=== PATIENT | male | born 1950 | race Caucasian/White ===

== ENCOUNTER 2020-01-16 07:16 | Outpatient (CLI) | payer BC, SELFPAY ==
--- NOTE | ~2020-01-16 | CT_ITS ---
EXAMINATION: CT abdomen pelvis w con DATE: 01/16/2020 07:54 INDICATION: Prostate cancer TECHNIQUE: Computed tomography (CT) of the abdomen and pelvis was performed with 100 mL Omnipaque-350 intravenous contrast. Automated exposure control and iterative reconstruction technique were employe d. The dose-length product was 423.79 mGy-cm. COMPARISON: None FINDINGS: Lung bases are clear. Heart size is normal. No pericardial or pleural effusion. Small sliding-type hi atal hernia. Mild focal hepatic steatosis at the ligamentum teres. Gallbladder, spleen, pancreas, lef t kidney and bilateral adrenal glands are normal. 1.7 cm exophytic intermediate attenuation lesion at the lower pole of the right kidney. There are few scattered colonic diverticula without adjacent inf lammatory change to suggest diverticulitis. Small bowel and appendix are normal. Bladder is normal. N o free intraperitoneal gas or fluid. No pathologically enlarged abdominal or pelvic lymphadenopathy. Pathologic fractures at the right superior and inferior pubic rami and left inferior pubic ramus, eac h associated with lytic bone lesions. There is prominent aggressive appearing periosteal reaction wit h hair on and pattern of calcification surrounding the inferior pubic ramus lesion. The left inferior pubic ramus lesion is superimposed over an earlier healed left inferior pubic ramus fracture. IMPRESSION: 1. Pathologic fractures at the right superior and inferior pubic rami and left inferior pubic ramus, each associated with underlying lytic changes which could be related to local osseous metastatic dise ase or radiation necrosis in the appropriate clinical setting. No other evident metastatic disease. 2. Indeterminate 1.7 cm intermediate attenuation right renal lesion most likely proteinaceous/hemorrh agic cyst although solid neoplasm cannot be excluded. Recommend further evaluation with pre and postc ontrast MRI or CT. Line 3. Small sliding-type hiatal hernia. 4. Mild diverticulosis. Reviewed, dictated and finalized at location B. IMPRESSION: 1. Pathologic fractures at the right superior and inferior pubic rami and left inferior pubic ramus, each associated with underlying lytic changes which could be related to local osseous metastatic disease or radiation necrosis in the ap propriate clinical setting. No other evident metastatic disease. 2. Indeterminate 1.7 cm intermediate attenuation right renal lesion most likely proteinaceous/hemorrhagic cyst although solid neoplasm cannot be excluded. Rec ommend further evaluation with pre and postcontrast MRI or CT. Line 3. Small sliding-type hiatal hernia. 4. Mild diverticulosis.
--- NOTE | ~2020-01-16 | NM_ITS ---
EXAMINATION: NM bone scan whole body DATE: 01/16/2020 11:09 INDICATION: Prostate cancer TECHNIQUE: 26.2 mCi Tc-99m HDP was administered intravenously. Delayed whole-body scintigrams were o btained. COMPARISON: CT abdomen and pelvis dated 01/16/2020 FINDINGS: Prominent increased uptake at the right superior pubic ramus and moderate uptake at the lateral infer ior pubic rami with corresponding pathologic fractures with underlying lytic lesions and prominent ag gressive appearing periosteal reaction on CT. Typical pattern of mild likely degenerative joint cente red uptake at the bilateral hands, wrists, elbows and shoulders and in the bilateral feet. No other s uspicious foci of abnormal bone uptake to suggest widespread osseous metastatic disease. IMPRESSION: 1. Prominent increased uptake at the bilateral inferior and right superior pubic rami with correspond ing pathologic fractures with underlying lytic lesions seen on CT. Differential would include metasta tic disease or osteonecrosis related to prior radiation treatment in the appropriate clinical setting . Reviewed, dictated and finalized at location B. IMPRESSION: 1. Prominent increased uptake at the bilateral inferior and right superior pubi c rami with corresponding pathologic fractures with underlying lytic lesions se en on CT. Differential would include metastatic disease or osteonecrosis relate d to prior radiation treatment in the appropriate clinical setting.
[2020-01-16 07:43] LABS: Estimated Glomerular Filt Rate 60
== END 2020-01-16 07:17 | disposition home or self-care (01) ==
PROVIDERS: PCP Family Medicine; Visit Provider Urology
DX: Z19.1 Hormone sensitive malignancy status (principal); K57.30 Diverticulosis of large intestine without perforation or abscess without bleeding; K44.9 Diaphragmatic hernia without obstruction or gangrene
CPT/HCPCS: 74177; 78306; A9561; Q9967

== ENCOUNTER 2020-05-28 10:29 | Outpatient (CLI) | payer BC, SELFPAY ==
--- NOTE | ~2020-05-28 | NM_ITS ---
EXAMINATION: NM bone scan whole body DATE: 05/28/2020 13:36 INDICATION: Pubic ramus fracture. Prostate cancer. TECHNIQUE: 24.3 mCi Tc-99m HDP was administered intravenously. Delayed whole-body scintigrams were o btained. COMPARISON: CT abdomen and pelvis 01/16/20, bones and 01/16/20 FINDINGS: There is increased activity in right superior and inferior pubic rami, right parasymphyseal pubis, and left inferior pubic ramus. There is joint-centered increased activity at the acromioclavi cular joints without radiographic comparison, likely osteoarthritis. IMPRESSION: 1. Unchanged distribution of increased activity in the pubic bones correlating with fractures on the prior CT. Reviewed, dictated and finalized at location A. [employer]
== END 2020-05-28 10:30 | disposition home or self-care (01) ==
PROVIDERS: PCP Family Medicine; Visit Provider Urology
DX: S32.599D Other specified fracture of unspecified pubis, subsequent encounter for fracture with routine healing (principal); X58.XXXD Exposure to other specified factors, subsequent encounter
CPT/HCPCS: 78306; A9561

== ENCOUNTER 2022-04-27 15:47 | Emergency (ER) | payer MEDICARE, BC, SELFPAY ==
[2022-04-27 16:03] VITALS: BP 156/86; PULSE 80; RESP 18; TEMP 37.8; O2SAT 99
--- NOTE | 2022-04-27 16:25 | ED.URI ---
HPI - URI/Sore Throat General Chief Complaint: Upper Respiratory Infection Stated Complaint: sorethroat Time Seen by Provider: 04/27/22 16:25 Source: patient, RN notes reviewed and old records reviewed Mode of arrival: ambulatory Limitations: no limitations History of Present Illness HPI Narrative: 71-year-old male presents to the [facility] with concerns for COVID and flu. symptoms started yesterday. Patient states is positive for COVID, granddaughter is positive for influenza A. Has taking [place] cough drops. No other treatment prior to arrival Related Data Home Medications Medication Instructions Recorded Confirmed atorvastatin 20 mg tablet 20 mg DAILY 04/27/22 04/27/22 enzalutamide 40 mg capsule (Xtandi) 40 mg PO DAILY 04/27/22 04/27/22 omeprazole 40 mg capsule,delayed 40 mg DAILY 04/27/22 04/27/22 release rizatriptan 10 mg tablet 10 mg PRN PRN Headache 04/27/22 04/27/22 Allergies Allergy/AdvReac Type Severity Reaction Status Date / Time No Known Allergies Allergy Verified 04/27/22 16:09 Review of Systems Review of Systems: All systems reviewed & are unremarkable except as noted in HPI and below Constitutional: Constitutional: Reports as per HPI, Reports body ache(s), Reports fatigue and Reports fever(s) Eyes: Eyes: Reports no additional eye complaints ENT: Reports system reviewed and no additional complaints, except as documented Cardiovascular: Cardiovascular: Reports no additional cardiovascular complaints, Denies chest pain and Denies dyspnea Respiratory: Respiratory: Reports no additional respiratory complaints, Denies chest congestion, Denies cough and Denies dyspnea Gastrointestinal: Gastrointestinal: Reports no additional gastrointestinal complaints, Denies abdominal pain, Denies nausea and Denies vomiting Musculoskeletal: Musculoskeletal: Reports no additional musculoskeletal complaints Integumentary/Breasts: Skin/Breast: Reports system reviewed and no additional complaints, except as docu Neurologic: Reports system reviewed and no additional complaints, except as documented Psychiatric: Psychiatric: Reports no additional psychiatric complaints Allergic/Immunologic: Allergic/Immunologic: Reports no additional allergic/immunologic complaints [facility] Past Medical History Medical History (Updated 04/27/22 @ 19:10 by Aurea Blood APRN) H/O gastroesophageal reflux (GERD) High cholesterol Comments At the time of my signature, I reviewed and agree with the nursing past medical, surgical, social, and family history. There is no relevant family history pertinent to the patient complaint. Exam Const: General: cooperative, comfortable, no acute distress, well developed, alert, ill appearing acutely (mild) and well nourished Nutritional Appearance: well nourished Orientation/consciousness: patient oriented x3 Limitations: no limitations HENMT: Head: normal to inspection Ears: hearing grossly normal bilaterally and external ears normal Face/Nose/Sinus: Normal external nose present, Normal nares present, Normal nasal mucous membranes and turbinates present and normal facial exam Face and sinus: normal facial exam Mouth: Yes Normal oral and palatal mucosa present, Yes lip normal and Yes moist mucous membranes Throat: posterior oropharynx normal and uvula midline Eyes: General: appearance normal, both eyes and all related structures Alignment and Position: alignment normal Periorbital: periorbital findings normal Conjunctivae: conjunctivae normal Pupils: Equal, round and reactive pupils present EOM: EOMs intact bilaterally Neck: Neck: normal visual inspection, full ROM, no lymphadenopathy and no meningeal signs Chest: Chest palpation & inspection: normal inspection of the chest Resp: Effort & Inspection: normal respiratory effort and able to speak in complete sentences Auscultation: clear to auscultation bilaterally, no crackles, no rales, no rhonchi and no wheezes Cardio: Rate:
== END 2022-04-27 17:00 | disposition home or self-care (01) ==
PROVIDERS: Emergency Provider Nurse Practitioner; PCP Family Medicine
DX: U07.1 COVID-19 (principal); J10.1 Influenza due to other identified influenza virus with other respiratory manifestations; K21.9 Gastro-esophageal reflux disease without esophagitis; E78.00 Pure hypercholesterolemia, unspecified
CPT/HCPCS: 87426; 87804; 99213; C9803; G0463

== ENCOUNTER 2024-06-28 10:31 | Emergency (ER) | payer MEDICARE, BC, SELFPAY ==
--- NOTE | ~2024-06-28 | XR_ITS ---
EXAMINATION: [id number] DATE: 06/28/2024 11:51 INDICATION: Lateral lower left rib pain post fall TECHNIQUE: A frontal inspiratory view of the chest and 3 views of the left ribs were obtained. COMPARISON: None FINDINGS: Mildly displaced fracture of the anterolateral left eighth and ninth ribs. No pneumothorax. No focal infiltrates, pleural effusion or pulmonary edema. Cardiomediastinal silhouette is normal. IMPRESSION: 1. Mildly displaced fractures of the anterolateral left eighth and ninth ribs. 2. No pneumothorax or other acute cardiopulmonary disease. Reviewed, dictated and finalized at location A. [facility]
--- OUTSIDE RECORDS SUMMARY | 2024-06-28 10:34 | XMS_ITS | Clinical Summary ---
Author Organization [address] Address [address] [place] [phone] Care Team Providers Care Education Rep Name Role Phone Nuha Araujo MD Primary Care Provi norma Allergies No known active allergies Medications cholecalciferol (VITAMIN D-3) 2000 unit tablet Take by mouth Active Xtandi 40 mg capsule 021 Active calcium acetate,phosphat bind, (PHOSLO) 667 mg capsule Take 1 capsule (667 mg total) by mouth 3 times daily Active rizatriptan (MAXALT) 10 mg tabletIndications:Migra ine Take 1 tablet (10 mg total) by mouth once as needed for migraine May repeat in 2 hours if unresolved. Do not exceed 30 mg in 24 hours. 56 tablet 1 024 2024 Active omeprazole (PriLOSEC) 40 mg capsule TAKE 1 CAPSULE(40 MG) BY MOUTH DAILY 100 capsule [address] (CYMBALTA) 20 mg capsuleIndications:Mild episode of recurrent major depressive disorder (HCC) Take 1 capsule (20 mg total) by mouth daily 90 capsule 024 Active atorvastatin (LIPITOR) 40 mg tabletIndications:Pure hypercholesterolemia Take 1 tablet (40 mg total) by mouth daily 90 tablet 025 2025 Active famotidine (PEPCID) 20 mg tabletIndications:Laryn gopharyngeal reflux (LPR) Take 2 tablets (40 mg total) by mouth nightly 30 tablet 2 025 Active fluticasone propionate (FLONASE) 50 mcg/actuation nasal sprayIndications:Eustac hian tube dysfunction, right Administer 2 sprays into each nostril daily 1 each 3 023 2024 Disconti nued(Pat ient Reported ) atorvastatin (LIPITOR) 20 mg tabletIndications:Pure hypercholesterolemia,Dy spnea on exertion Take 1 tablet (20 mg total) by mouth daily 30 tablet 11 024 2024 Disconti nued(Reo rder) Active Problems Problem Noted Date Diagnosed Date Hoarse 06/18/2024 Right corneal abrasion 03/31/2024 Assessment & Plan (03/31/2024 9:26 AM BILL CHECKER): Diagnosed with k abrasion by pcp. Abrasion resolved on exam today with no residual corneal stain. Ok to d/c cipro drops. Start artificial tears prn. F/u here prn. Pt had dfe with his local eye care provider recently. Okay to maintain routine follow up care there. Low bone mass 02/15/2024 Depression, recurrent (CMS/HCC) 02/15/2024 Multiple thyroid nodules 02/07/2023 Bilateral hip pain 01/02/2023 Assessment & Plan (02/07/2023 9:25 AM CDT): Acute, improved Continue supportive care Update me with any changes Assessment & Plan (01/02/2023 2:50 PM CDT): Acute, but again concerning given his prostate cancer metastatic to bone Will check baseline x-ray and pelvis May need further imaging, but hopefully Radiology will guide us Continue supportive care for his pain for now We discussed stronger pain medication like opioid medication, patient declined Further guidance once we have the results Sensorineural hearing loss (SNHL) of both ears 0 08/30/2022 Assessment & Plan (02/07/2023 9:26 AM CDT): Pt denies symptoms Continue to follow with ent Conductive hearing loss, bilateral 08/23/2022 Assessment & Plan (02/07/2023 9:22 AM CDT): Pt denies any symptoms Managed by ENT Bilateral impacted cerumen 08/23/2022 Assessment & Plan (02/07/2023 9:10 AM CDT): Acute, resolved Managed by ENT Update me with any changes or concerns Dyspnea on exertion 01/30/2022 Overview (01/30/2022): check studies encouraged to see card if it returns, call, if they worsens/emergent sx- to the er call for questions Assessment & Plan (02/07/2023 9:23 AM CDT): Acute, now improved We reviewed his work up was incomplete- declined follow up at this time Update me if his symptoms change or return Call for questions Assessment & Plan (01/30/2022 9:43 AM CDT): EKG normal sinus rhythm, incomplete right bundle-branch block, left axis, anterior fascicular block. This is unchanged from July 13, 2020. Encouraged patient to consider Cardiology, patient will consider Malignant neoplasm of prostate metastatic to bon e 07/13/2020 Assessment & Plan (02/07/2023 9:13 AM CDT): Chronic, uncertain level of control given bone pain, but PET scan negative for metastatic lesions where he is having pain currently Managed by Urology Continue current regimen Update me with changes or concerns Assessment & Plan (01/02/2023 2:50 PM CDT): Last urology note reviewed, at that time patient was complaining of bilateral pelvic pain Will check x-rays Continue treatment for his prostate cancer three Urology Update me with any changes or concerns Call for questions Assessment & Plan (02/07/2022 12:06 PM CDT): Will reach out to his urologist regarding medication for cholesterol If in agreement, will start Lipitor 10 mg nightly We will let him know once we hear from his urologist Assessment & Plan (01/30/2022 8:51 AM CDT): Chronic Continue to follow with urology Update me with any changes F/u in 6 months to update me Call for questions Assessment & Plan (07/13/2020 9:50 AM BILL CHECKER): Continue to follow with urology Keep me updated Call for questions or concerns Melanocytic nevi of trunk 02/19/2020 Assessment & Plan (02/07/2023 9:25 AM CDT): Asymptomatic Encouraged follow up with derm Update me with any changes Assessment & Plan (01/30/2022 8:52 AM CDT): Improved Encouraged follow up with derm Update me with any changes Assessment & Plan (07/13/2020 10:24 AM BILL CHECKER): Continue to follow with derm Solar lentiginosis 02/19/2020 Assessment & Plan (02/07/2023 9:27 AM CDT): Asymptomatic Encouraged follow up with derm as needed Assessment & Plan (01/30/2022 8:54 AM CDT): Improved Encouraged follow up with derm Update me with any changes Assessment & Plan (07/13/2020 10:24 AM BILL CHECKER): Continue to follow with derm Hypertension, essential 03/26/2019 Assessment & Plan (02/07/2023 9:11 AM CDT): Chronic, stable On lifestyle changes Continue to monitor Assessment & Plan (01/02/2023 2:53 PM CDT): Chronic, mildly elevated today Patient and discomfort Continue to monitor at home Continue healthy changes Recheck at follow-up Assessment & Plan (01/30/2022 8:49 AM CDT): Elevated- but patient states it is always elevated when he comes in Will give him a handout on the dash diet Will have him update us with his blood pressure readings from home F/u for BP check in 1-2 weeks with his home cuff Assessment & Plan (07/13/2020 10:23 AM BILL CHECKER): Recheck WNL Continue current regimen Assessment & Plan (06/20/2019 7:51 AM BILL CHECKER): Now diet controlled Continue working on healthy changes Call for questions or concerns Assessment & Plan (03/26/2019 10:21 AM BILL CHECKER): With three elevated blood pressures Hand out on DASH diet Will start metoprolol daily for both blood pressure/migraine Reviewed risks/benefits Continue healthy changes Recheck in 1 month for blood pressure check Call for questions or concerns Pure hypercholesterolemia 03/26/2019 Overview (03/26/2019): CVD Score 21.4% Assessment & Plan (02/07/2023 9:26 AM CDT): Chronic, stable Continue Lipitor 20 mg nightly Labs ordered Assessment & Plan (02/07/2022 10:17 AM CDT): Currently uncontrolled CVD score 27.[address] Smith regarding medication options Update me with any concerns Further guidance once we have the results Assessment & Plan (01/30/2022 8:54 AM CDT): Chronic, but with a high risk Will recheck Further guidance once we have the results Assessment & Plan (07/13/2020 10:25 AM BILL CHECKER): Not on medication Labs ordered Assessment & Plan (03/26/2019 10:55 AM BILL CHECKER): Reviewed ASCVD score Reviewed risk of heart attack, stroke Declined medication Will work on healthy changes Recheck in 3-6 months Encounter for Medicare annual wellness exam 05/2018 Overview (02/15/2024): Pt with a living will Health Maintenance: Last PSA: through Urology Last cologuard: 12/2021- Neg Last AAA Screenin03/19/19-WNL Last Tdap:02/03 Last pneumonia: up to date Last Shingrix: encouraged Last Flu: up to date COVID: up to date RSV: up to date Assessment & Plan (02/15/2024 7:49 AM CDT): Pt with a living will Health Maintenance: Last PSA: through Urology Last cologuard: 12/2021- Neg Last AAA Screenin03/19/19-WNL Last Tdap:02/03 Last pneumonia: up to date Last Shingrix: encouraged Last Flu: up to date COVID: up to date RSV: up to date Assessment & Plan (02/07/2023 9:19 AM CDT): Encouraged healthy diet and activity Please look into a power of chancellor or living will Health Maintenance: Last PSA: through Urology Last cologuard: 12/2021- Neg Last AAA Screenin03/19/19-WNL Last Tdap:02/03 Last pneumonia: up to date Last Shingrix: seconfdvaccine pending Last Flu: yearly COVID: reviewed RSV: encouraged Assessment & Plan (01/30/2022 8:45 AM CDT): Encouraged healthy diet and activity Please look into a power of chancellor or living will Health Maintenance: Last PSA: through Urology Last cologuard: 12/2021 Last AAA Screenin03/19/19-WNL Last Tdap:07/24 Last pneumonia/Prevnar: believes he had at [facility] Last Shingrix: reviewed, encouraged Last Flu: yearly COVID: completed Assessment & Plan (07/13/2020 9:53 AM BILL CHECKER): Encouraged healthy diet and activity Please look into a power of chancellor or living will Wear sun screen, seat belts Health Maintenance: Last PSA: Last cologuard: 07/2018- neg, repeat in 3 years Last AAA Screenin03/19/19-WNL Last Tdap:07/24 Last pneumonia/Prevnar: believes he had at [facility] Last Shingrix: consider after covid Last Flu: yearly COVID: started first injection Assessment & Plan (03/14/2019 8:20 AM CDT): Work on healthy low carb diet Healthy activity for 30 minutes daily Wear sun screen, seat belts No texting/drinking and driving PMH updated: Last colonoscopy/cologuard:07/20/18, cologuard negative Last Tdap:07/2012 Last pneumonia/Prevnar: due Last Shingrix: reviewed Last Flu: 2 weeks ago Last Eye Exam: yearly Last hepatitis C: ordered Last PSA: ordered Last AAA screening: ordered Overweight (BMI 25.0-29.9) 03/14/2019 Assessment & Plan (03/28/2024 9:51 AM BILL CHECKER): BMI Follow-up includes: education provided. Assessment & Plan (02/07/2023 9:13 AM CDT): BMI Follow-up includes: nutrition counseling. Assessment & Plan (01/30/2022 8:53 AM CDT): BMI Follow-up includes: nutrition counseling. Assessment & Plan (07/13/2020 10:25 AM BILL CHECKER): BMI Follow-up includes: nutrition counseling. Assessment & Plan (03/14/2019 8:29 AM CDT): BMI Follow-up includes: nutrition counseling and exercise counseling. GERD (gastroesophageal reflux disease) 9 Assessment & Plan (02/07/2023 9:11 AM CDT): Chronic, stable Continue omeprazole Reviewed the risk, benefits, side effects of medication Assessment & Plan (01/30/2022 8:48 AM CDT): Chronic stable Reviewed the risks/benefits of medication We discussed decreasing to 20 mg daily when he needs his last refill Assessment & Plan (07/13/2020 10:23 AM BILL CHECKER): Reviewed risks of PPI's Continue current regimen for now Call for questions or concerns Assessment & Plan (03/14/2019 8:30 AM CDT): Stable Continue current regimen Reviewed the risks/benefits including c diff, pneumonia Call for questions or concerns Migraine with aura and witho ut status migrainosus, not intractable 06/17/2018 Assessment & Plan (02/07/2023 9:13 AM CDT): Chronic, stable Continue Maxalt as needed Continue healthy habits for migraines Assessment & Plan (01/30/2022 8:52 AM CDT): Chronic, improved Continue maxalt as needed Continue healthy changes for headaches- avoiding triggers, working on good sleep, stress reduction Assessment & Plan (07/13/2020 10:24 AM BILL CHECKER): Stable Continue current regimen Call for questions or concerns Assessment & Plan (06/20/2019 7:49 AM BILL CHECKER): Doing well on medication Continue current regimen Update me with any changes Call for questions or concerns Assessment & Plan (03/14/2019 8:29 AM CDT): Continue maxalt if needed Will do a trial of aimovig Work on healthy changes Call for questions or concerns Resolved Problems Problem Noted Date Diagnosed Date Resolved Date Acute bilateral low back solomon n without sciatica 01/02/2023 02/15/2024 Assessment & Plan (02/07/2023 9:22 AM CDT): Acute, improved Continue muscle relaxer as needed Continue supportive care Assessment & Plan (01/02/2023 2:53 PM CDT): Acute, new diagnosis with uncertain prognosis. With his prostate cancer metastatic to bone, this could be a more serious issue than just muscular back pain Will check x-ray. I did let the patient know that depending on those results, it will determine what our next steps are with imaging We discussed that until we know the source for his pain, we can not necessarily have a great plan Will do a trial of Flexeril to help with his pain at night Further guidance once we get the results Update me with any questions or concerns Eustachian tube dysfunction, right 08/30/2022 02/15/2024 Assessment & Plan (02/07/2023 9:11 AM CDT): Acute, resolved Managed by ENT Impacted cerumen of left ear 08/30/2022 02/15/2024 Assessment & Plan (02/07/2023 9:11 AM CDT): Acute, resolved Inflamed seborrheic keratosis 02/19/2020 02/15/2024 Assessment & Plan (02/07/2023 9:24 AM CDT): resolved No skin concerns currently Update me with any changes Assessment & Plan (01/30/2022 8:50 AM CDT): Improved Encouraged follow up with derm Update me with any changes Assessment & Plan (07/13/2020 10:24 AM BILL CHECKER): Continue to follow with derm High prostate specific antigen (PSA) 03/26/2019 01/30/2022 Assessment & Plan (06/20/2019 7:51 AM BILL CHECKER): Referral replaced Update me after the visit Call for questions or concerns Assessment & Plan (03/26/2019 10:11 AM BILL CHECKER): Will refer to urology for further guidance Update me after the visit Call for questions or concerns Encounters Date Type Department Care Team Description 06/18/2024 11:00 AM BILL CHECKER Office Visit [facility] Otol[facility] [address] [place] [phone] Ginger Burnette NP Laryngopharyngeal reflux (LPR) (Primary Dx); Hoarse; Bilateral impacted cerumen; Sensorineural hearing loss (SNHL) of both ears 06/10/2024 7:15 AM BILL CHECKER Office Visit [facility] Family Medicine [address] [place] [phone] Nuha Araujo MD Multiple thyroid nodules (Primary Dx); Subclinical hyperthyroidism; Pure hypercholesterolemia; 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); Hoarse; Cold extremities 06/06/2024 9:15 AM BILL CHECKER - 06/06/2024 11:59 PM BILL CHECKER Hospital Encounter [facility] [address] [place] [address] Neck pain Discharge Disposition: Discharge to home or self care 05/28/2024 9:45 AM BILL CHECKER Lab [facility] [address] [place] [address] Gastroesophageal reflux disease without esophagitis; Hypertension, essential 03/31/2024 9:15 AM BILL CHECKER Office Visit [facility] [address] [place] [address] [place] [phone] Anson Bright OD Abrasion of right cornea, initial encounter 03/28/2024 9:00 AM BILL CHECKER Office Visit [facility] Family Medicine [address] [phone] Shannan Arriaza PA Abrasion of right cornea, initial encounter (Primary Dx); Overweight (BMI 25.0-29.9) from Last 3 Months Immunizations Name Administration Dates Next Due DTaP 05/25/2006 Influenza, Quad, Adjuvantate d, Intramuscular 03/01/2023,04/12/2021 Influenza, Quadrivalent, Hig h Dose, Preservative Free, Intrr 01/30/2022,03/05/2020 Influenza, Trivalent, Adjuva nted, Intramuscular 02/01/2024,03/05/2018,03/04/2018,02/22 Influenza, Trivalent, High D ose, Split, Preservative Free, Intramuscular 02/28/2019,03/31/2016,01/28/2014 Influenza, Trivalent, IM (MDV) 02/21/2013,2009 Influenza, Trivalent, Preser vative Free, Intramuscular 02/17/2015 Influenza, Unspecified 02/07/2023(Deferr ed: Patient Refused),03/05/2020 Moderna SARS-CoV-2 Monovalen t Vaccination (12+ YRS) 06/23/2020 Pneumococcal Conjugate Pcv20 01/30/2022 RSV, Bivalent, Protein Subun it Rsvpref, Diluent (Abrysvo) 03/01/2023 Tdap 02/07/2023,07/12/2012 ZOSTER Recombinant 02/06/2024,02/07/2023 Surgical History Surgery Date Site/Laterality Comments SINUS SURGERY 05/14/1999 - 05/13/2000 SINUS SURGERY 08/12/2018 - 09/10/2018 BACK SURGERY 05/14/1994 - 05/13/1995 LASIK FINE NEEDLE ASPIRATION 05/14/2022 - 05/13/2023 N/A thyroid-benign EYE SURGERY Medical History Medical History Date Comments Migraine MRI done 01/07/14 -Normal GERD (gastroesophageal reflux disease) Esophageal stricture Biceps tendinitis Hypertension Cancer (CMS/HCC) (HCC) Tinnitus Ear problems HL (hearing loss) Acute bilateral low back pain without sciatica 0 01/02/2023 Eustachian tube dysfunction, right 08/30/2022 Inflamed seborrheic keratosis 02/19/2020 Hoarseness Family History Medical History Relation Name Comments Cancer Father Prostate cancer Maternal Grandfather No Known Problems Mother Glaucoma Paternal Grandmother Macular degeneration Neg Hx Relation Name Status Comments Father Maternal Grandfather Maternal Grandmother Mother Alive Paternal Grandfather Paternal Grandmother Social History Tobacco Use Types Packs/Day Years Used Date Smoking Tobacco: Never Smokeless Tobacco: Never Tobacco Cessation:Counseling Given: Not Answered Alcohol Use Standard Drinks/Week Comments Never 0 (1 standard drink = 0.6 oz pur e alcohol) AUDIT-C Answer Date Recorded Q1: How often do you have a drink containing alcohol? Never 06/10/2024 Q2: How many drinks containi ng alcohol do you have on a typical day when you are drinking? Patient does not drink Q3: How often do you have si x or more drinks on one occasion? Never 06/10/2024 PHQ-2 Answer Date Recorded PHQ-2 Total Score (If total score is 3 or more points, staff should administer the PHQ-9) 0 06/10/2024 Sex and Gender Information Value Date Recorded Sex Assigned at Not on file Legal Sex Male 9:34 PM BILL CHECKER Gender Identity Not on file Sexual Orientation Not on file Occupation Industry Job Start Date Job End Date retired Not on file Not on file Not on file Obstetrics History Last Filed Vital Signs Vital Sign Reading Time Taken Comments Blood Pressure 128/70 06/10/2024 7:27 AM BILL CHECKER Pulse 78 06/10/2024 7:27 AM BILL CHECKER Temperature 36.4 C (97.5 F) 06/10/2024 7:27 AM BILL CHECKER Respiratory Rate 18 06/18/2024 11:07 AM BILL CHECKER Oxygen Saturation 98% 06/10/2024 7:27 AM BILL CHECKER Inhaled Oxygen Concentration - - Weight 81.6 kg (180 lb) 06/18/2024 11:07 AM BILL CHECKER Height 180.3 cm (5' 11 ) 06/18/2024 11:07 AM BILL CHECKER Body Mass Index 25.1 06/18/2024 11:07 AM BILL CHECKER Plan of Treatment Health Maintenance Due Date Last Done Comments Hepatitis B Screening 1968 Covid-19 Vaccine (2023-2 5 season) 2024 01/18/2024, 03/01/2023, 12/01/2021, Additional history exists Colon Cancer Screening-DNA Stool 01/05/2025 01/06/20, 07/20/2018 Fall Risk Assessment 02/14/2025 02/15/2024, 02/07/2023, 01/30/2022, Additional history exists Well Visit 65+ 02/14/2025 02/15/2024, 01/13, 02/07/2023, Additional history exists Depression Screening 06/10/2025 06/10/2024, 03/28/2024, 02/15/2024, Additional history exists DTaP/Tdap/Td Vaccine (4 - Td or Tdap) 02/07/2033 02/07/2023, 07/12/2012, 05/25/2006 Hepatitis C Screening Completed 03/14/2019 Prostate Cancer Screening-PSA Discontinued , 03/14/2019, 02/19/2017, Additional history exists Pneumococcal vaccine 65+ Completed 01/30/2022 Influenza Vaccine Completed 02/01/2024, , 01/30/2022, Additional history exists Zoster Vaccine Completed 02/06/2024, 02/07/2023 Procedures Procedure Name Priority Date/Time Associated Diagnosis Comments XR SPINE CERVICAL 2 OR 3 VIEWS Schedule Routine, Read Routine (OP Routine) 06/06/2024 9:23 AM BILL CHECKER Neck pain T3, FREE Routine 05/28/2024 9:50 AM BILL CHECKER EGFR Routine 05/28/2024 9:50 AM BILL CHECKER Hypertension, essential T4, FREE Routine 05/28/2024 9:50 AM BILL CHECKER Hypertension, essential DIFFERENTIAL AUTO Routine 05/28/2024 9:5 0 AM BILL CHECKER Hypertension, essential VITAMIN B12 Routine 05/28/2024 9:50 AM BILL CHECKER Gastroesophageal reflux disease without esophagitis THYROID FUNCTION CASCADE Routine 05/28/2024 9:50 AM BILL CHECKER Hypertension, essential LIPID PANEL Routine 05/28/2024 9:50 AM BILL CHECKER Hypertension, essential CBC WITH AUTO DIFFERENTIAL Routine 05/28/2024 9:50 AM BILL CHECKER Hypertension, essential COMPREHENSIVE METABOLIC PANEL Routine 05/28/2024 9:50 AM BILL CHECKER Hypertension, essential MAGNESIUM Routine 05/28/2024 9:50 AM BILL CHECKER Gastroesophageal reflux disease without esophagitis STOOL DNA COLOGUARD Routine 01/05/2022 11:10 AM CDT Screen for colon cancer PSA, TOTAL AND FREE Routine 08/19/2020 6 :32 AM CDT Malignant neoplasm of prostate metastatic to bone (CMS/HCC) HEPATITIS C ANTIBODY Routine 03/14/2019 9:16 AM CDT from Last 3 Months or Most Recently Relevant to Health Maintenance Results * XR Spine Cervical 2 or 3 Views (06/06/2024 9:23 AM BILL CHECKER) Anatomical Region Laterality Modality Spine N/A Computed Radiogr aphy 06/06/2024 7:11 PM BILL CHECKER Narrative 06/06/2024 7:13 PM BILL CHECKER EXAM DESCRIPTION: XR SPINE CERVICAL 2 OR 3 VIEWS REASON FOR STUDY: neck pain Chronic headaches FINDINGS: Two views submitted without comparison. No acute fracture. No prevertebral soft tissue swelling. There is mild retrolisthesis of C3 on C4. There is mild C3-C6 and severe C6-C7 degenerative disc disease. Bilateral cervical facet osteoarthritis is present. There is mild levocurvature of the cervicothoracic junction. IMPRESSION: Mild C3-C6 and severe C6-C7 degenerative disc disease with bilateral cervical facet osteoarthritis. THIS IS AN ELECTRONICALLY VERIFIED FINAL REPORT 06/06/2024 7:13 PM - Electronically signed by Eric Lombardo M.D. MF: LILY Report ID: [id number] Reading Location: [id number] Procedure Note Eric Lombardo MD - 06/06/2024 EXAM DESCRIPTION: XR SPINE CERVICAL 2 OR 3 VIEWS REASON FOR STUDY: neck pain Chronic headaches FINDINGS: Two views submitted without comparison. No acute fracture. No prevertebral soft tissue swelling. There is mild retrolisthesis of C3 on C4. There is mild C3-C6 and severe C6-[id number] disc disease. Bilateral cervical facet osteoarthritis is present. Thereis mild levocurvature of the cervicothoracic junction. IMPRESSION: Mild C3-C6 and severe C6-C7 degenerative disc disease with bilateralcervical facet osteoarthritis. THIS IS AN ELECTRONICALLY VERIFIED FINAL REPORT 06/06/2024 7:13 PM - Electronically signed by Eric Lombardo M.D. MF: LILY Report ID: [id number] Reading Location: [place] [address] us Physician No IMG XR PROCEDURES Final Result * eGFR (05/28/2024 9:50 AM BILL CHECKER) eGFR 78 >=60 mL/min/1. 73 m2 Comment: Interpretive Data Reference Interval Normal >/= 90 mL/min/1.73m2 Mildly decreased* 60 - 89 mL/min/1.73m2 Mildly to moderately decreased 45 - 59 mL/min/1.73m2 Moderately to severely decreased 30 - 44 mL/min/1.73m2 Severely decreased 15 - 29 mL/min/1.73m2 Kidney Failure < 15 mL/min/1.73m2 *Relative to young adult level Estimated glomerular filtration rate is determined by the 2020 CKD-EPI equation recommended by the National Kid[employer] (A Unifying Approach to GFR Estimation: Recommendations of the NKF-ASK Task Force on Reassessing the Inclusion of Race in Diagnosing Kidney Disease, JASN 2020). The CKD-EPI equation should not be used for patients with unstable renal function and has not been validated in children and those over 70. Current interpretive data was last reviewed 2021. Testing performed by: [address] [address] Blood 05/28/2024 9:50 AM BILL CHECKER 05/28/2024 12:00 PM BILL CHECKER us Nuha Araujo MD LAB BLOOD ORDERABLE S Final Result [facility] [address] [facility] Department [place] [address] * Differential, auto (05/28/2024 9:50 AM BILL CHECKER) Neutrophil abs 2.0 1.5 - 6.5 K/cumm Comment:Testing performed by : [address] [address] Imm gran abs 0.0 0.0 - 0.1 K/cumm EDWIN Comment:Testing performed by : [address] [address] Lymphocyte abs 0.8 0.8 - 3.3 K/cumm EDWIN Comment:Testing performed by : [address] [address] Monocyte abs 0.5 0.2 - 0.8 K/cumm EDWIN Comment:Testing performed by : [address] [address] Eosinophil abs 0.2 0.0 - 0.5 K/cumm [facility] Comment:Testing performed by : [address] [address] Basophil abs 0.0 0.0 - 0.1 K/cumm [facility] Comment:Testing performed by : [address] [address] Neutrophil pct 56.8 % [facility] Comment: Interpretive Data Percent cell count reference ranges are not reported, since discordance with absolute values may lead to misinterpretation of CBC data. Current Interpretive Data was last revised on 2017. Testing performed by: [address] [address] Imm gran pct 0.6 % [facility] Comment: Interpretive Data Percent cell count reference ranges are not reported, since discordance with absolute values may lead to misinterpretation of CBC data. Current Interpretive Data was last revised on 2017. Testing performed by: [address] [address] Lymphocyte pct 22.4 % [facility] Comment: Interpretive Data Percent cell count reference ranges are not reported, since discordance with absolute values may lead to misinterpretation of CBC data. Current Interpretive Data was last revised on 2017. Testing performed by: [address] [address] Monocyte pct 14.6 % [facility] Comment: Interpretive Data Percent cell count reference ranges are not reported, since discordance with absolute values may lead to misinterpretation of CBC data. Current Interpretive Data was last revised on 2017. Testing performed by: [address] [address] Eosinophil pct 4.7 % [facility] Comment: Interpretive Data Percent cell count reference ranges are not reported, since discordance with absolute values may lead to misinterpretation of CBC data. Current Interpretive Data was last revised on 2017. Testing performed by: [address] [address] Basophil pct 0.9 % [facility] Comment: Interpretive Data Percent cell count reference ranges are not reported, since discordance with absolute values may lead to misinterpretation of CBC data. Current Interpretive Data was last revised on 2017. Testing performed by: [address] [address] Blood 05/28/2024 9:50 AM BILL CHECKER 05/28/2024 12:02 PM BILL CHECKER Nuha Araujo MD LAB BLOOD ORDERABLE S Final Result Performing Organization Address [facility] de Phone Number EDWIN [address] [place] [place] [address] * (ABNORMAL) Thyroid Function [place] (05/28/2024 9:50 AM BILL CHECKER) TSH 0.19(L) 0.30 - 4.20 mcIUnit/mL Comment:Testing performed by : [address] [address] Blood 05/28/2024 9:50 AM BILL CHECKER 05/28/2024 12:00 PM BILL CHECKER Nuha Araujo MD LAB BLOOD ORDERABLE S Final Result Performing Organization Address [facility] de Phone Number NATAN[address] [place] [employer] [place] [address] * (ABNORMAL) CBC with auto differential (05/28/2024 9:50 AM BILL CHECKER) WBC 3.4(L) 3.8 - 9.9 K/cumm Comment:Testing performed by : [address] [address] Hgb 15.4 13.0 - 17.5 g/dL EDWIN RANDALL Comment:Testing performed by : [address] [address] Hct 45.6 38.9 - 50.3 % EDWIN [place] Comment:Testing performed by : [address] [address] Plt 180 150 - 400 K/cumm EDWIN [place]ANDALL Comment:Testing performed by : [address] [place]., [address] MPV 11.4 9.1 - 12.3 fL EDWIN [place]ALL Comment:Testing performed by : [address] [address] RBC 5.33 4.30 - 5.80 M/cumm EDWIN [place]ALL Comment:Testing performed by : [address] [address] MCV 85.6 81.3 - 96.4 fL EDWIN Comment:Testing performed by : [address] [address] MCH 28.9 27.1 - 33.3 pg EDWIN [place]ANDALL Comment:Testing performed by : [address] [address] MCHC 33.8 32.3 - 35.7 g/dL EDWIN [place]ANDALL Comment:Testing performed by : [address], [address] RDW CV 13.2 11.1 - 14.9 % EDWIN Comment:Testing performed by : [address], [address] RDW SD 40.8 35.7 - 48.1 fL EDWIN Comment:Testing performed by : [address] [address] NRBC abs 0.00 0.00 - 0.01 K/cumm EDWIN RANDALL Comment:Testing performed by : [address], [address] Blood 05/28/2024 9:50 AM BILL CHECKER 05/28/2024 12:02 PM BILL CHECKER us Nuha Araujo MD LAB BLOOD ORDERABLE S Final Result EDWIN [address] [facility] Department of Laboratories [place], [place] [id number] * T3, free (05/28/2024 9:50 AM BILL CHECKER) Free T3 4.4 2.0 - 4.4 pg/mL Blood 05/28/2024 9:50 AM BILL CHECKER 05/28/2024 4:35 PM BILL CHECKER Narrative EDWIN - 05/28/2024 5:10 PM BILL CHECKER This test was reflexed from a T4 result. us Nuha Araujo MD LAB BLOOD ORDERABLE S Final Result Performing Organization Address City/[facility]/ZIP Co de Phone Number EDWIN [address] [address] * T4, free (05/28/2024 9:50 AM BILL CHECKER) Free T4 1.12 0.90 - 1.70 ng/dL Comment:Testing performed by : [address] [address] Blood 05/28/2024 9:50 AM BILL CHECKER 05/28/2024 12:00 PM BILL CHECKER Narrative EDWIN - 05/28/2024 2:22 PM BILL CHECKER This test was reflexed from a TSH result. us Nuha Araujo MD LAB BLOOD ORDERABLE S Edited Result - Final Performing Organization Address [facility] de Phone Number NATAN[address] [address] * Magnesium (05/28/2024 9:50 AM BILL CHECKER) Magnesium 2.3 1.4 - 2.5 mg/dL Comment:Testing performed by : [address] [address] Blood 05/28/2024 9:50 AM BILL CHECKER 05/28/2024 12:00 PM BILL CHECKER us Nuha Araujo MD LAB BLOOD ORDERABLE S Final Result Performing Organization Address [facility]/ZIP Co de Phone Number EDWIN [address] [address] * Vitamin B12 (05/28/2024 9:50 AM BILL CHECKER) Vitamin B12 269 230 - 1,250 pg/mL Comment:Testing performed by : [facility], [address] [place] [address]., [address] Blood 05/28/2024 9:50 AM BILL CHECKER 05/28/2024 12:00 PM BILL CHECKER us Nuha Araujo MD LAB BLOOD ORDERABLE S Final Result EDWIN [address] [facility] Department [place] [address] * (ABNORMAL) Lipid panel (05/28/2024 9:50 AM BILL CHECKER) Cholesterol 232(H) 30 - 199 mg/dL Comment: Interpretive Data Ages < or = 19 years Acceptable: <170 mg/dL Borderline high: 170-199 mg/dL High: >or= 200 mg/dL Ages > or = 20 years Desirable: <200 mg/dL Borderline high: 200-239 mg/dL High: >or= 240 mg/dL Literature References: 1. Expert Panel on Integrated Guidelines for Cardiovascular Health and Risk Reduction in Children and Adolescents. Pediatrics 2011;128:S213 2. NCEP Expert Panel. Circulation 2004;110:227 Current Interpretive Data was last revised on 2018. Testing performed by: [facility], [address] [place] [address]., [address] Triglycerides 95 <=149 mg/dL EDWIN Comment: Interpretive Data Ages < or = 9 years Acceptable: <75 mg/dL Borderline high: 75-99 mg/dL High: >or= 100 mg/dL Ages 10 to 20 years Acceptable: <90 mg/dL Borderline high: 90-129 mg/dL High: >or= 130 mg/dL Ages > or = 20 years Desirable: <150 mg/dL Borderline high: 150-199 mg/dL High: 200-499 mg/dL Very high: >or= 499 mg/dL Literature References: 1. Expert Panel on Integrated Guidelines for Cardiovascular Health and Risk Reduction in Children and Adolescents. Pediatrics 2011;128:S213 2. NCEP Expert Panel. Circulation 2004;110:227 Current Interpretive Data was last revised on 2018. Testing performed by: [facility], [address] [place] [address]., [address] HDL 84 >=40 mg/dL EDWIN Comment: Interpretive Data Ages < or = 19 years Acceptable: >45 mg/dL Borderline low: 40-45 mg/dL Low: <40 mg/dL Ages > or = 20 years Desirable: >or= 60 mg/dL Low: <40 mg/dL Literature References: 1. Expert Panel on Integrated Guidelines for Cardiovascular Health and Risk Reduction in Children and Adolescents. Pediatrics 2011;128:S213 2. NCEP Expert Panel. Circulation 2004;110:227 Current Interpretive Data was last revised on 2018. Testing performed by: [address] [address] LDL, calculated 132(H) <=129 mg/dL EDWIN Comment: Interpretive Data Ages < or = 19 years Acceptable: <110 mg/dL Borderline high: 110-129 mg/dL High: >or= 130 mg/dL Ages > or = 20 years Optimal: <100 mg/dL Near optimal: 100-129 mg/dL Borderline high: 130-159 mg/dL High: >160 mg/dL Calculated using the Bandar LDL-C estimating equation. This equation was implemented on 2024. Prior to this date LDL-C was estimated using the Friedewald equation. Literature References: 1. Expert Panel on Integrated Guidelines for Cardiovascular Health and Risk Reduction in Children and Adolescents. Pediatrics 2011;128:S213 2. NCEP Expert Panel. Circulation 2004;110:227 3. Bandar Graham al. CLARA Cardiol. 2019September 11;5(5):540-548. doi: [email or web address] Current Interpretive Data was last revised on 2024. Testing performed by: [facility], [address] [place] [address]., [address] Non-HDL Cholesterol 148 mg/dL EDWIN RANDALL Comment: Interpretive Data Ages < or = 19 years Acceptable: <120 mg/dL Borderline high: 120-144 mg/dL High: >145 mg/dL Ages > or = 20 years When triglycerides are >200 mg/dL, Non-HDL cholesterol is a secondary target of therapy with treatment goals that are 30 mg/dL greater than the LDL cholesterol target. Literature References: 1. Expert Panel on Integrated Guidelines for Cardiovascular Health and Risk Reduction in Children and Adolescents. Pediatrics 2011;128:S213 2. NCEP Expert Panel. Circulation 2004;110:227 Current Interpretive Data was last revised on 2018. Testing performed by: [address] [address] Chol/HDL ratio 3 EDWIN Comment:Testing performed by : [address] [address] Blood 05/28/2024 9:50 AM BILL CHECKER 05/28/2024 12:00 PM BILL CHECKER us Nuha Araujo MD LAB BLOOD ORDERABLE S Final Result EDWIN [address] [facility] Department [place] [address] * (ABNORMAL) Comprehensive metabolic panel (05/28/2024 9:50 AM BILL CHECKER) Sodium 140 135 - 145 mmol/L Comment:Testing performed by : [address] [address] Potassium, pl 4.8 3.3 - 4.9 mmol/L EDWIN Comment:Testing performed by : [address] [address] Chloride 102 97 - 110 mmol/L EDWIN Comment:Testing performed by : [address] [address] CO2 28 22 - 32 mmol/L EDWIN Comment:Testing performed by : [address] [address] Anion gap 10 2 - 15 mmol/L EDWIN Comment:Testing performed by : [address] [address] BUN 16 6 - 25 mg/dL EDWIN Comment:Testing performed by : [address] [address] Creatinine 1.02 0.80 - 1.30 mg/dL EDWIN Comment:Testing performed by : [address] [address] Glucose 112 70 - 199 mg/dL EDWIN Comment: Interpretive Data Fasting glucose >/= 126 mg/dl is diagnostic for diabetes. Fasting is defined as no caloric intake for at least 8 hours. Fasting glucose between 100 mg/dl to 125 mg/dl is diagnostic of prediabetes. In a patient with classic symptoms of hyperglycemia or hyperglycemic crisis, a random glucose >/= 200 mg/dl is diagnostic for diabetes. In the absence of unequivocal hyperglycemia, results should be confirmed by repeat testing. The classification and Diagnosis of Diabetes Diabetes Care 2021; 46: S19-S40. Current interpretive data was last revised 2022. Testing performed by: [address] [address] Calcium 10.2 8.5 - 10.3 mg/dL EDWIN Comment:Testing performed by : [address] [address] Bilirubin, total 0.5 0.1 - 1.2 mg/dL EDWIN Comment:Testing performed by : [address] [address] Protein, pl 7.4 6.5 - 8.5 g/dL EDWIN Comment:Testing performed by : [address] [address] Albumin 4.6 3.5 - 5.0 g/dL EDWIN Comment:Testing performed by : [address] [address] Alk phos 70 40 - 130 Units/L EDWIN Comment:Testing performed by : [address] [address] ALT <5(L) 7 - 55 Units/L EDWIN Comment:Testing performed by : [address] [address] AST 20 10 - 50 Units/L EDWIN Comment:Testing performed by : [address] [address] Blood 05/28/2024 9:50 AM BILL CHECKER 05/28/2024 12:00 PM BILL CHECKER us Nuha Araujo MD LAB BLOOD ORDERABLE S Final Result EDWIN [address] [facility] Department [place] [address] * Stool DNA - Cologuard (01/05/2022 11:10 AM CDT) Stool DNA - Cologuard Negative Negative [email or web address] (CLIA #:[id number]) Comment: NEGATIVE TEST RESULT. A negative Cologuard result indicates a low likelihood that a colorectal cancer (CRC) or advanced adenoma (adenomatous polyps with more advanced pre-malignant features) is present. The chance that a person with a negative Cologuard test has a colorectal cancer is less than 1 in 1500 (negative predictive value >99.9%) or has an advanced adenoma is less than 5.3% (negative predictive value 94.7%). These data are based on a prospective cross-sectional study of 10,000 individuals at average risk for colorectal cancer who were screened with both Cologuard and colonoscopy. (Sherly Aguilar al, N Engl J Med 2014;370(14):0873-8768) The normal value (reference range) for this assay is negative. COLOGUARD RE-SCREENING RECOMMENDATION: Periodic colorectal cancer screening is an important part of preventive healthcare for asymptomatic individuals at average risk for colorectal cancer. Following a negative Cologuard result, the [place] Cancer Society and U.S. Multi-Society Task Force screening guidelines recommend a Cologuard re-screening interval of 3 years. References: [place] Cancer Society Guideline for Colorectal Cancer Screening: https://www.cancer.org/cancer/mtdck-fgbnxn-uxtufx/asxgrsfnf-otrpkhiqq-rddhxhc/ac s-rec ommendations.html.; Theo DK, Judie CR, Hoa GreenfieldK, Colorectal Cancer Screening: Recommendations for Physicians and Patients from the U.S. Multi-Society Task Force on Colorectal Cancer Screening , Am J Gastroenterology 2017; 112:5949-3511. TEST DESCRIPTION: Composite algorithmic analysis of stool DNA-biomarkers with hemoglobin immunoassay. Quantitative values of individual biomarkers are not reportable and are not associated with individual biomarker result reference ranges. Cologuard is intended for colorectal cancer screening of adults of either sex, 45 years or older, who are at average-risk for colorectal cancer (CRC). Cologuard has been approved for use by the U.S. FDA. The performance of Cologuard was established in a cross sectional study of average-risk adults aged 50-84. Cologuard performance in patients ages 45 to 49 years was estimated by sub-group analysis of near-age groups. Colonoscopies performed for a positive result may find as the most clinically significant lesion: colorectal cancer [4.0%], advanced adenoma (including sessile serrated polyps greater than or equal to 1cm diameter) [20%] or non- advanced adenoma [31%]; or no colorectal neoplasia [45%]. These estimates are derived from a prospective cross-sectional screening study of 10,000 individuals at average risk for colorectal cancer who were screened with both Cologuard and colonoscopy. (Sherly Aguilar al, N Engl J Med 2014;370(14):3973-1271.) Cologuard may produce a false negative or false positive result (no colorectal cancer or precancerous polyp present at colonoscopy follow up). A negative Cologuard test result does not guarantee the absence of CRC or advanced adenoma (pre-cancer). The current Cologuard screening interval is every 3 years. ([place] Cancer Society and U.S. Multi-Society Task Force). Cologuard performance data in a 10,000 patient pivotal study using colonoscopy as the reference method can be accessed at the following location: www.[employer]/results. Additional description of the Cologuard test process, warnings and precautions can be found at www.[email or web address].[email or web address]. Stool 01/05/2022 11:1 0 AM CDT 01/06/2022 4:33 PM CDT us Nuha Araujo MD LAB BODY FLUIDS AND STOOLS ORDERABLES Final Result [facility] (CLIA #:[id number]) [place] [address] [place] [address] * PSA, total and free (08/19/2020 6:32 AM CDT) Free PSA Screen <0.1 ng/mL [employer] PROSTATE SPECIFIC AG, TOTAL 0.2 0.0 - 4.0 ng/mL [facility] Comment: INTERPRETIVE INFORMATION: Prostate Specific Antigen The Kathy PSA electrochemiluminescent immunoassay was used. Results obtained with different test methods or kits cannot be used interchangeably. The Kathy PSA method is approved for use as an aid in the detection of prostate cancer when used in conjunction with a digital rectal exam in men age 50 and older. The Kathy PSA method is also indicated for the serial measurement of PSA to aid in the prognosis and management of prostate cancer patients. Elevated PSA concentrations can only suggest the presence of prostate cancer until biopsy is performed. PSA concentrations can also be elevated in benign prostatic hyperplasia or inflammatory conditions of the prostate. PSA is generally not elevated in healthy men or men with non-prostatic carcinoma. PROSTATE SPECIFIC AG, % FREE <50 % [facility] Comment: INTERPRETIVE INFORMATION: Prostate Specific Antigen, Free Percentage [facility] uses the Kathy Free PSA electrochemiluminescent immunoassay method in conjunction with the Kathy PSA electrochemiluminescent immunoassay method to determine the free PSA percentage. Values obtained with different assay methods should not be used interchangeably. The free PSA percentage is an aid in distinguishing prostate cancer from benign prostatic conditions in men age 50 and older with a total PSA between 3 and 10 ng/mL and negative digital rectal examination findings. Prostatic biopsy is required for the diagnosis of cancer. In patients with total PSA concentrations of 4-10 ng/mL, the probability of finding prostate cancer on needle biopsy by age in years is: %fPSA 50-59 60-69 70 or older 0 - 10% 49% 58% 65% 11 - 18% 27% 34% 41% 19 - 25% 18% 24% 30% Greater than 25% 9% 12% 16% Other factors may help determine the actual risk of prostate cancer in individual patients. Performed By: [email or web address] [address] [place] [id number] Marketing Systems Analyst: Eri Perez MD Blood specimen (specimen) 08/19/2020 6:32 AM CDT 08/19/2020 6:42 AM CDT Narrative Resulting Agency Comment CLI us Nuha Araujo MD LAB BLOOD ORDERABLE S Final Result [facility] [address] [place] [address], [place] [phone] * Hepatitis C antibody (03/14/2019 9:16 AM CDT) Hep C Ab NONREACT NONREACTIVE [facility] Comment: Siemens CentaurXP using SANAM (chemiluminescent immunoassay) technology. NONREACTIVE: Antibodies to Hepatitis C not detected. This does not exclude early acute Hepatitis C infection, possibility of exposure to Hepatitis C, antibodies below detection limit, or to lack of antibody reactivity to the antigen used in this assay. EQUIVOCAL: Antibodies to Hepatitis C may or may not be present. Sample to be confirmed by real-time PCR method. REACTIVE: Antibodies to Hepatitis C detected.Sample to be confirmed by real-time PCR method. 03/14/2019 9:16 AM CDT 03/14/2019 9:16 AM CDT Narrative Resulting Agency Comment CLI Nuha Araujo MD LAB MICROBIOLOGY - GENERAL ORDERABLES Final Result Performing Organization Address City/[facility]/ZIP Co de Phone Number [facility] [address] [place] [address], [place] [phone] from Last 3 Months or Most Recently Relevant to Health Maintenance Insurance MEDICARE [facility] MEDICARE [facility] MEDICARE [facility] Address: [address] [place] [address] Care Teams Education Rep Relationship Specialty Start Date End Date Nuha Araujo MD [address] [place] [address] PCP - General Family Medicine 09/11/18
--- OUTSIDE RECORDS SUMMARY | 2024-06-28 10:34 | XMS_ITS | Clinical Summary ---
Author Organization [facility] Address [address] [place] [address] Care Team Providers Care Job Forwarder Name Role Phone Nuha Araujo MD Primary Care Provider Allergies No known active allergies Medications meloxicam 15 MG tablet Take 15 mg by mouth daily. 12/01/2019 Active omeprazole 40 MG capsule TK ONE C PO QD 02/24/2019 Active calcium acetate, phos binder, 667 MG Cap Take 667 mg by mouth 3 (three) times daily with meals. Active Cholecalciferol (VITAMIN D3) 50 MCG (1999) Tab Active Active Problems No known active problems Immunizations Name Administration Dates Next Due MODERNA COVID-19 (12+) MRNA, LNP-S, PF, 100 MCG/ 0.5 ML DOSE 07/21/2020,06/23/2020 Social History Tobacco Use Types Packs/Day Years Used Date Smoking Tobacco: Never Smokeless Tobacco: Never Alcohol Use Standard Drinks/Week Comments Never 0 (1 standard drink = 0.6 oz pur e alcohol) AUDIT-C Answer Date Recorded Q1: How often do you have a drink containing alc ohol? Never 02/04/2020 Average Number of Drinks Not on file 020 Frequency of Binge Drinking Not on file 01/13 Sex and Gender Information Value Date Recorded Sex Assigned at Not on file Legal Sex Male 9:34 AM CDT Gender Identity Not on file Sexual Orientation Not on file Last Filed Vital Signs Vital Sign Reading Time Taken Comments Blood Pressure 150/87 02/04/2020 8:05 AM CDT Pulse 85 02/04/2020 8:05 AM CDT Temperature 36.2 C (97.1 F) 02/04/2020 8:05 AM CDT Respiratory Rate - - Oxygen Saturation 99% 02/04/2020 8:05 AM CDT Inhaled Oxygen Concentration - - Weight 80.9 kg (178 lb 6.4 oz) 02/04/2020 8:05 A M CDT Height 180.3 cm (5' 11 ) 02/04/2020 8:05 AM CDT Body Mass Index 24.88 02/04/2020 8:05 AM CDT Plan of Treatment Health Maintenance Due Date Last Done Comments Colorectal Cancer Screening Colonoscopy (10 Years) 1950 Hepatitis C 1968 Annual Medicare Wellness Visit 09/15/2015 Zoster Vaccines (2 of 2) 04/04/2023 02/07/2023 COVID-19 Vaccine (3 - season) 2024 07/21/2020, 06/23/2020 Influenza Adult (#1) 2024 03/05/2020, 02/28/2019, 03/05/2018, Additional history exists DTaP, Tdap and Td Vaccines (4 - Td or Tdap) 02/07/2033 02/07/2023, 07/12/2012, 05/25/2006 Pneumococcal Vaccine: 65+ Years Completed 01/30/2022 RSV Immunization or 60+ Years Completed 03/01/2023 Meningococcal B Vaccine Aged Out No l onger eligible based on patient's age to complete this topic Meningococcal Vaccine Aged Out No ney sudarshan eligible based on patient's age to complete this topic RSV Immunizations Under 20 Months Aged Out No longer eligible based on patient's age to complete this topic Insurance MEDICARE Care Teams Job Forwarder Relationship Specialty Start Date End Date Nuha Araujo MD [address] [facility] [address] [place] [address] PCP - General FAMILY PRACTICE 02/04/20
--- OUTSIDE RECORDS SUMMARY | 2024-06-28 10:34 | XMS_ITS | Patient Health Summary ---
Author Organization [facility] Address [address] [place] [address] Care Team Providers Care [facility] Associate Professor Name Role Phone Nuha Araujo MD Primary Care Provider [phone] Note from [facility],non-owned Affiliates and Associated Physician Practices is amultiple site organization consisting of ambulatory clinics and hospital sitesin [place], [place], [place] and [place]. This disclosure is being madepursuant to the Care Everywhere program and may not contain all information available regarding this patient. Last updated 18.[facility] Allergies No known active allergies Medications * Be aware that medications may not be up to date on this document. Alwaysverify current medications with the patient. * Vitamin D3, cholecalciferol, 50 MCG (2000 UT) tablet * erenumab-aooe (AIMOVIG) 70 MG/ML auto injector pen(Started 03/14/2019) Inject 70 mg subcutaneously * meloxicam (MOBIC) 15 MG tablet(Started 12/01/2019) Take 15 mg by mouth once daily * omeprazole (PRILOSEC) 40 MG capsule(Started 02/24/2019) TK ONE C PO QD * rizatriptan (MAXALT) 10 MG tablet(Started 12/11/2019) TAKE 1 TABLET BY MOUTH 1 TIME NEEDED * XTANDI 40 MG capsule(Started 04/17/2020) Active Problems Problem Noted Date Diagnosed Date Seborrheic keratosis 02/19/2020 Solar lentiginosis 02/19/2020 Melanocytic nevi of trunk 02/19/2020 Inflamed seborrheic keratosis 02/19/2020 Social History Tobacco Use Types Packs/Day Years Used Date Smoking Tobacco: Never Smokeless Tobacco: Never Alcohol Use Standard Drinks/Week Comments Not Currently 0 (1 standard drink = 0.6 oz pur e alcohol) Sex and Gender Information Value Date Recorded Sex Assigned at Not on file Gender Identity Not on file Sexual Orientation Not on file Last Filed Vital Signs Vital Sign Reading Time Taken Comments Blood Pressure 128/62 05/18/2020 9:51 AM 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 Pulse 86 05/18/2020 9:51 AM 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 Temperature - - Respiratory Rate - - Oxygen Saturation 98% 05/18/2020 9:51 AM 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 Inhaled Oxygen Concentration - - Weight 80.7 kg (178 lb) 05/12/2020 9:40 AM 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 Height - - Body Mass Index - - Procedures * GROSS + MICRO EXAM (ILL)(Performed 05/18/2020) Performed for Bone lesion * CT GUIDED NEEDLE PLACEMENT(Performed 05/18/2020) Performed for Lesion of pelvic bone * CBC W/O DIFFERENTIAL(Performed 05/18/2020) Performed for Pre-operative laboratory examination, jail (current) use of anticoagulants * PT PTT PANEL(Performed 05/18/2020) Performed for Pre-operative laboratory examination, jail (current) use of anticoagulants * CT PELVIS WO CONTRAST(Performed 05/12/2020) Performed for 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) Results * GROSS + MICRO EXAM (ILL) (05/18/2020 10:14 AM [employer]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) Case Report Surgical Pathology Report Case: [id number] Authorizing Provider: Julio Gayle MD Collected: 05/18/2020 10:14 AM Ordering Location: [facility] CAT SCAN Received: 05/18/2020 02:19 PM Pathologist: Ray Adams MD Specimen: Biopsy, right pubic ramus 11:04 AM [employer]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 [facility] Final Diagnosis BONE, RIGHT PUBIC INFERIOR RAMUS, CT-GUIDED CORE NEEDLE BIOPSY: - METASTATIC ADENOCARCINOMA - SEE COMMENT HC/anca COMMENT: The cores show neoplastic ductal and cribriform glands invading bone with evidence of bone remodeling (osteoblastic rimming). Prostate primary is in the consideration given the history, but other primaries including colorectum and lung are also in the histologic consideration. Prior pathology slides of prostate cancer and report are not available to us for morphologic comparison, immunohistochemical study will be performed to assist with further classification. The results will be reported in an addendum. 11:04 AM [facility] Microscopic Description and Comment Microscopic examination is performed and substantiates the above diagnosis. 11:04 AM [facility] Clinical History Right inferior ramus bone lesion biopsy, soft tissue component, history of prostate cancer and bone lesions. 11:04 AM [facility] Intraoperative Consultation Four Touch imprints, bone lesion, right inferior ramus: Positive for tumor cells. Reported verbally to Dr. Gayle at 10:15 am on 05/18/[address] Adams. 11:04 AM [facility] Gross Description Received in formalin labeled, Casey Cyr, and right lesion inferior ramus bone biopsy, are five fragments of red-yao bone, each measuring 0.1 cm in diameter with an aggregate length of 3.6 cm in aggregate length. Submitted in A1-A2 for a light decalcification. LS/na 11:04 AM [facility] Disclaimer The performance characteristics of all immunohistochemical and indirect immunofluorescence stains (if any) cited in this report were determined by the [facility] of [facility]. Some of these tests were developed by our own laboratory and have not been cleared or approved by the US Food and Drug Administration. The FDA does not require this test to go through premarket FDA review. These tests are used for clinical purposes. They should not be regarded as investigational or for research. This laboratory is certified under the Clinical Laboratory Improvement Amendments (CLIA) as qualified to perform high complexity clinical laboratory testing. H&E slides and special stains prepared at [facility], [place]. [address] (CLIA# [id number]) unless otherwise specified. This case was interpreted by the [facility] Department of Pathology. When applicable, select reference laboratory testing is performed at the [facility], [address] [place] [id number]. 11:04 AM [facility] Addendum 1 Immunostains were performed. The results show that the tumor cells are positive for PSA, NKX 3.1(performed at [facility] ([place])), CDX2, CK7 and negative for TTF1 and CK20. These results favor prostate primary. BONE, RIGHT PUBIC INFERIOR RAMUS, CT-GUIDED CORE NEEDLE BIOPSY: - METASTATIC ADENOCARCINOMA, CONSISTENT WITH PROSTATE PRIMARY. 11:04 AM 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 [facility] Addendum electronically signed by Ray Adams MD on 05/21/2020 at 11:03 AM Embedded Images 11:04 AM [employer]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 [facility] Pathology/Cytolo gy BIOPSY / Unknown Collection / Unknown 05/18/2020 10:14 AM 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 05/18/2020 2:19 PM 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 Julio Gayle MD LAB - PATHOLOGY/CYT OLOGY ORDERABLES Performing Organization Address City/State/[facility] Co de Phone Number [facility] [address] * CT GUIDED NEEDLE PLACEMENT (05/18/2020 10:05 AM [employer]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 Edited by Karly Real on 06/30/2020 9:53 AM Impressions 05/18/2020 10:52 AM 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-guided biopsy Pubic ramus right including the soft tissue component of the destructive lesion Final pathology pending No immediate complications Narrative 05/18/2020 10:52 AM [employer]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 PROCEDURE: CT GUIDED NEEDLE PLACEMENT 05/18/2020 10:27 AM HISTORY: Disorder of bone, unspecified. FINDINGS AND IMPRESSION: COMPARISON: No comparison. FINDINGS: Under sterile prep and drape and CT guidance, inferior pubic ramus was approached from a posterior transgluteal approach 14-gauge trocar was introduced multiple 16-gauge core biopsies were obtained taking care not to create a through and through stress riser in the bone Initial pathology suggested positive result Final pathology pending Procedure Note Julio Gayle MD - 01/05/2021 PROCEDURE: CT GUIDED NEEDLE PLACEMENT 05/18/2020 10:27 AM HISTORY: Disorder of bone, unspecified. FINDINGS AND IMPRESSION: COMPARISON: No comparison. FINDINGS: Under sterile prep and drape and CT guidance, inferior pubic ramus was approached from a posterior transgluteal approach 14-gauge trocar was introduced multiple 16-gauge core biopsies were obtained taking care not to create a through and through stress riser in the bone Initial pathology suggested positive result Final pathology pending IMPRESSION Successful CT-guided biopsy Pubic ramus right including the soft tissue component of the destructive lesion Final pathology pending No immediate complications Parviz Martinez MD CT ORDERABLES * (ABNORMAL) PT PTT PANEL (05/18/2020 7:33 AM [employer]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) PT 12.0 11.3 - 14.8 sec 05/18/2020 8:09 AM [facility] INR 0.92(L) 2 - 3 05/18/2020 8:09 AM [facility] PTT 28.3 23.0 - 38.4 sec 05/18/2020 8:09 AM [facility] Blood BLOOD SPECIMEN / Unknown Lab Venipuncture / Unknown 05/18/2020 7:33 AM [facility]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 05/18/2020 7:39 AM [facility] N[facility] - 05/18/2020 8:09 AM [facility] Recommended therapeutic INR ranges for Oral Anticoagulant Therapy: 2.0-3.0 For prevention of Thrombosis or Embolism and treatment of Venous Thrombosis. 2.5- 3.5 for prevention of Recurrent Embolism or treatment of patients with Mechanical Prosthetic Heart Valves. 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) WBC 5.2 4.0 - 10.0 x10E9/L 05/18/2020 7:41 AM [facility] RBC 5.24 4.40 - 6.10 x10E12/L 05/18/2020 7:41 AM [facility] Hemoglobin 14.3 13.7 - 17.5 gm/dL 05/18/2020 7:41 AM [facility] Hematocrit 43.8 40.1 - 51.0 % 05/18/2020 7:41 AM [facility] MCV 83.6 78.0 - 100.0 fl 05/18/2020 7:41 AM [facility] MCH 27.3 25.6 - 34.0 pg 05/18/2020 7:41 AM [facility] MCHC 32.6 32.3 - 36.5 gm/dL 05/18/2020 7:41 AM [facility] RDW 13.7 11.6 - 14.4 % 05/18/2020 7:41 AM [facility] MPV 10.0 9.4 - 12.4 fl 05/18/2020 7:41 AM [facility] Platelet Count 178 163 - 369 x10E9/L 05/18/2020 7:41 AM [facility] Blood BLOOD SPECIMEN / Unknown Lab Venipuncture / Unknown 05/18/2020 7:33 AM 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 05/18/2020 7:39 AM 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 Julio Gayle MD LAB - HEMATOLOGY OR DERABLES Performing Organization Address [facility]/State/[facility] Co de Phone Number [facility] [address] * CT PELVIS WO CONTRAST (05/12/2020 9:00 AM [employer]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) Anatomical Region Laterality Modality Pelvis Computed Tomogra phy 05/12/2020 9:08 AM [employer]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 Impressions 05/12/2020 12:24 PM [employer]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 Impression: Slightly progressed extensive lytic bone lesions in right superior/inferior pubic rami and left inferior pubic ramus with pathological fractures and periosteal reaction are suggestive of osseous metastasis. Dictated by Ai Almonte MD (residential concierge). I, Dr. ZENON GRAJEDA have personally reviewed and interpreted this examination/study. This report was electronically signed by ZENON GRAJEDA on 05/12/2020 12:24 PM . Narrative 05/12/2020 12:24 PM 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 Procedure Information: DATE: 05/12/2020 9:01 AM EXAMINATION: Computed tomography (CT) of the pelvis without contrast TECHNIQUE: CT of the pelvis was performed without contrast according to standard protocol. Clinical Information: HISTORY: C61: Malignant neoplasm of prostate metastatic to bone COMPARISON: Outside Hospital CT Abdomen Pelvis with Contrast dated 01/16/2020, bone scan dated 01/16/2020 Findings: Evaluation of visceral and vascular structures is degraded due to lack of intravenous contrast administration. Gastrointestinal: The visualized loops of large and small bowel are unremarkable. Incidental note made of normal appearance to the appendix. Mesentery/Peritoneum/Retroperitoneum: Normal. Bladder: Slight irregularity of the anterior aspect of the bladder wall may be nonspecific. Reproductive Organs: Mild prostate calcifications are present. Lymph Nodes: Scattered small nodes but no adenopathy. Vasculature: No vascular abnormality is noted. Bones: Expansive lytic lesions in the right superior and inferior pubic rami with cortical irregularity and extensive periosteal reaction and underlying fractures. Cortical defect with mild periosteal reaction in the left inferior pubic ramus is again noted. All the lesions are slightly more prominent compared to 01/16/2020. Fluid: No ascites and no abnormal focal fluid collections. Soft tissues: Normal. Procedure Note Zenon Grajeda MD - 05/12/2020 Procedure Information: DATE: 05/12/2020 9:01 AM EXAMINATION: Computed tomography (CT) of the pelvis without contrast TECHNIQUE: CT of the pelvis was performed without contrast according to standard protocol. Clinical Information: HISTORY: C61: Malignant neoplasm of prostate metastatic to bone COMPARISON: Outside Hospital CT Abdomen Pelvis with Contrast dated 01/16/2020, bone scan dated 01/16/2020 Findings: Evaluation of visceral and vascular structures is degraded due to lackof intravenous contrast administration. Gastrointestinal: The visualized loops of large and small bowel are unremarkable.Incidental note made of normal appearance to the appendix. Mesentery/Peritoneum/Retroperitoneum: Normal. Bladder: Slight irregularity of the anterior aspect of the bladder wall may be nonspecific. Reproductive Organs: Mild prostate calcifications are present. Lymph Nodes: Scattered small nodes but no adenopathy. Vasculature: No vascular abnormality is noted. Bones: Expansive lytic lesions in the right superior and inferior pubic ramiwith cortical irregularity and extensive periosteal reaction and underlying fractures. Cortical defect with mild periosteal reaction in the left inferior pubic ramus is again noted. All the lesions are slightly more prominent compared to 01/16/2020. Fluid: No ascites and no abnormal focal fluid collections. Soft tissues: Normal. Impression: Slightly progressed extensive lytic bone lesions in right superior/inferior pubic rami and left inferior pubic ramus with pathological fractures and periosteal reaction are suggestive of osseous metastasis. Dictated by Ai Almonte MD (residential concierge). I, Dr. ZENON GRAJEDA have personally reviewed and interpreted this examination/study. This report was electronically signed by ZENON GRAJEDA on 05/12/202012:24 PM . Parviz Martinez MD CT ORDERABLES Care Teams [facility] Associate Professor Relationship Specialty Start Date End Date Nuha Araujo MD PCP - General Family Medicine 05/17/20
--- OUTSIDE RECORDS SUMMARY | 2024-06-28 10:34 | XMS_ITS | Referral Summary ---
Author Organization [address] Address [address] [place] [phone] Care Team Providers Care Roulette Dealer Name Role Phone Nuha Araujo MD Primary Care Provi norma Encounters Date Type Department Care Team Description 06/18/2024 11:00 AM MUSIC ORCHESTRATOR Office Visit [facility] Otolaryngology [address] [place] [phone] Ginger Burnette NP Laryngopharyngeal reflux (LPR) (Primary Dx); Hoarse; Bilateral impacted cerumen; Sensorineural hearing loss (SNHL) of both ears 06/10/2024 7:15 AM MUSIC ORCHESTRATOR Office Visit [facility] Family Medicine [address] [place] [phone] Nuha Araujo MD Multiple thyroid nodules (Primary Dx); Subclinical hyperthyroidism; Pure hypercholesterolemia; 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); Hoarse; Cold extremities 06/06/2024 9:15 AM MUSIC ORCHESTRATOR - 06/06/2024 11:59 PM MUSIC ORCHESTRATOR Hospital Encounter [facility] Diagnostic Imaging [address] [place] [address] Neck pain Discharge Disposition: Discharge to home or self care 05/28/2024 9:45 AM MUSIC ORCHESTRATOR Lab [facility] OP Lab [address] [place] [id number] Gastroesophageal reflux disease without esophagitis; Hypertension, essential 03/31/2024 9:15 AM MUSIC ORCHESTRATOR Office Visit [facility] [address] [place] [phone] Anson Bright OD Abrasion of right cornea, initial encounter 03/28/2024 9:00 AM MUSIC ORCHESTRATOR Office Visit [facility] Family Medicine [address] [phone] Shannan Arriaza PA Abrasion of right cornea, initial encounter (Primary Dx); Overweight (BMI 25.0-29.9) from Last 3 Months Allergies No known active allergies Medications cholecalciferol [...] 03/31/2024 Assessment & Plan (03/31/2024 9:26 AM MUSIC ORCHESTRATOR): Diagnosed with k abrasion by pcp. Abrasion [...] questions Assessment & Plan (07/13/2020 9:50 AM MUSIC ORCHESTRATOR): Continue to follow with urology Keep me updated Call for questions or concerns Melanocytic nevi of trunk 02/19/2020 Assessment & Plan (02/07/2023 9:25 AM CDT): Asymptomatic Encouraged follow up with derm Update me with any changes Assessment & Plan (01/30/2022 8:52 AM CDT): Improved Encouraged follow up with derm Update me with any changes Assessment & Plan (07/13/2020 10:24 AM MUSIC ORCHESTRATOR): Continue to follow with derm Solar lentiginosis 02/19/2020 Assessment & Plan (02/07/2023 9:27 AM CDT): Asymptomatic Encouraged follow up with derm as needed Assessment & Plan (01/30/2022 8:54 AM CDT): Improved Encouraged follow up with derm Update me with any changes Assessment & Plan (07/13/2020 10:24 AM MUSIC ORCHESTRATOR): Continue to follow with derm Hypertension, essential [...] cuff Assessment & Plan (07/13/2020 10:23 AM MUSIC ORCHESTRATOR): Recheck WNL Continue current regimen Assessment & Plan (06/20/2019 7:51 AM MUSIC ORCHESTRATOR): Now diet controlled Continue working on healthy changes Call for questions or concerns Assessment & Plan (03/26/2019 10:21 AM MUSIC ORCHESTRATOR): With three elevated blood pressures Hand out [...] results Assessment & Plan (07/13/2020 10:25 AM MUSIC ORCHESTRATOR): Not on medication Labs ordered Assessment & Plan (03/26/2019 10:55 AM MUSIC ORCHESTRATOR): Reviewed ASCVD score Reviewed risk of heart [...] activity Please look into a power of divorce attorney or living will Health Maintenance: Last PSA: through Urology Last cologuard: 12/2021- Neg Last AAA Screenin03/19/19-WNL Last Tdap:02/03 Last pneumonia: up to date Last Shingrix: seconfdvaccine pending Last Flu: yearly COVID: reviewed RSV: encouraged Assessment & Plan (01/30/2022 8:45 AM CDT): Encouraged healthy diet and activity Please look into a power of divorce attorney or living will Health Maintenance: Last PSA: through Urology Last cologuard: 12/2021 Last AAA Screenin03/19/19-WNL Last Tdap:07/24 Last pneumonia/Prevnar: believes he had at [facility] Last Shingrix: reviewed, encouraged Last Flu: yearly COVID: completed Assessment & Plan (07/13/2020 9:53 AM MUSIC ORCHESTRATOR): Encouraged healthy diet and activity Please look into a power of divorce attorney or living will Wear sun screen, seat [...] 03/14/2019 Assessment & Plan (03/28/2024 9:51 AM MUSIC ORCHESTRATOR): BMI Follow-up includes: education provided. Assessment & Plan (02/07/2023 9:13 AM CDT): BMI Follow-up includes: nutrition counseling. Assessment & Plan (01/30/2022 8:53 AM CDT): BMI Follow-up includes: nutrition counseling. Assessment & Plan (07/13/2020 10:25 AM MUSIC ORCHESTRATOR): BMI Follow-up includes: nutrition counseling. Assessment & Plan (03/14/2019 8:29 AM CDT): BMI Follow-up includes: nutrition counseling and exercise counseling. GERD (gastroesophageal reflux disease) Assessment & Plan (02/07/2023 9:11 AM CDT): Chronic, stable Continue omeprazole Reviewed the risk, benefits, side effects of medication Assessment & Plan (01/30/2022 8:48 AM CDT): Chronic stable Reviewed the risks/benefits of medication We discussed decreasing to 20 mg daily when he needs his last refill Assessment & Plan (07/13/2020 10:23 AM MUSIC ORCHESTRATOR): Reviewed risks of PPI's Continue current regimen [...] reduction Assessment & Plan (07/13/2020 10:24 AM MUSIC ORCHESTRATOR): Stable Continue current regimen Call for questions or concerns Assessment & Plan (06/20/2019 7:49 AM MUSIC ORCHESTRATOR): Doing well on medication Continue current regimen [...] changes Assessment & Plan (07/13/2020 10:24 AM MUSIC ORCHESTRATOR): Continue to follow with derm High prostate specific antigen (PSA) 03/26/2019 01/30/2022 Assessment & Plan (06/20/2019 7:51 AM MUSIC ORCHESTRATOR): Referral replaced Update me after the visit Call for questions or concerns Assessment & Plan (03/26/2019 10:11 AM MUSIC ORCHESTRATOR): Will refer to urology for further guidance Update me after the visit Call for questions or concerns Immunizations Name Administration Dates Next Due DTaP [...] (Abrysvo) 03/01/2023 Tdap 02/07/2023,07/12/2012 ZOSTER Recombinant 02/06/2024,02/07/2023 Social History Tobacco Use Types Packs/Day Years [...] on file Legal Sex Male 9:34 PM MUSIC ORCHESTRATOR Gender Identity Not on file Sexual Orientation Not on file Occupation Industry Job Start Date Job End Date retired Not on file Not on file Not on file Last Filed Vital Signs Vital Sign Reading Time Taken Comments Blood Pressure 128/70 06/10/2024 7:27 AM MUSIC ORCHESTRATOR Pulse 78 06/10/2024 7:27 AM MUSIC ORCHESTRATOR Temperature 36.4 C (97.5 F) 06/10/2024 7:27 AM MUSIC ORCHESTRATOR Respiratory Rate 18 06/18/2024 11:07 AM MUSIC ORCHESTRATOR Oxygen Saturation 98% 06/10/2024 7:27 AM MUSIC ORCHESTRATOR Inhaled Oxygen Concentration - - Weight 81.6 kg (180 lb) 06/18/2024 11:07 AM MUSIC ORCHESTRATOR Height 180.3 cm (5' 11 ) 06/18/2024 11:07 AM MUSIC ORCHESTRATOR Body Mass Index 25.1 06/18/2024 11:07 AM MUSIC ORCHESTRATOR Plan of Treatment Not on file Procedures Procedure Name Priority Date/Time Associated Diagnosis Comments XR SPINE CERVICAL 2 OR 3 VIEWS Schedule Routine, Read Routine (OP Routine) 06/06/2024 9:23 AM MUSIC ORCHESTRATOR Neck pain T3, FREE Routine 05/28/2024 9:50 AM MUSIC ORCHESTRATOR EGFR Routine 05/28/2024 9:50 AM MUSIC ORCHESTRATOR Hypertension, essential T4, FREE Routine 05/28/2024 9:50 AM MUSIC ORCHESTRATOR Hypertension, essential DIFFERENTIAL AUTO Routine 05/28/2024 9:5 0 AM MUSIC ORCHESTRATOR Hypertension, essential VITAMIN B12 Routine 05/28/2024 9:50 AM MUSIC ORCHESTRATOR Gastroesophageal reflux disease without esophagitis THYROID FUNCTION CASCADE Routine 05/28/2024 9:50 AM MUSIC ORCHESTRATOR Hypertension, essential LIPID PANEL Routine 05/28/2024 9:50 AM MUSIC ORCHESTRATOR Hypertension, essential CBC WITH AUTO DIFFERENTIAL Routine 05/28/2024 9:50 AM MUSIC ORCHESTRATOR Hypertension, essential COMPREHENSIVE METABOLIC PANEL Routine 05/28/2024 9:50 AM MUSIC ORCHESTRATOR Hypertension, essential MAGNESIUM Routine 05/28/2024 9:50 AM MUSIC ORCHESTRATOR Gastroesophageal reflux disease without esophagitis STOOL DNA [...] 2 or 3 Views (06/06/2024 9:23 AM MUSIC ORCHESTRATOR) Anatomical Region Laterality Modality Spine N/A Computed Radiogr aphy 06/06/2024 7:11 PM MUSIC ORCHESTRATOR Narrative 06/06/2024 7:13 PM MUSIC ORCHESTRATOR EXAM DESCRIPTION: XR SPINE CERVICAL 2 OR [...] Eric Lombardo M.D. MF: LILY Report ID: [id number] Reading Location: [place] [address] Procedure Note Eric Lombardo MD - 06/06/2024 EXAM DESCRIPTION: XR SPINE CERVICAL 2 OR 3 VIEWS REASON FOR STUDY: neck pain Chronic headaches FINDINGS: Two views submitted without comparison. No acute fracture. No prevertebral soft tissue swelling. There is mild retrolisthesis of C3 on C4. There is mild C3-C6 and severe C6-J9ptnesxqyvyzs disc disease. Bilateral cervical facet osteoarthritis is present. Thereis mild levocurvature of the cervicothoracic junction. IMPRESSION: Mild C3-C6 and severe C6-C7 degenerative disc disease with bilateralcervical facet osteoarthritis. THIS IS AN ELECTRONICALLY VERIFIED FINAL REPORT 06/06/2024 7:13 PM - Electronically signed by Eric Lombardo M.D. MF: LILY Report ID: [id number] Reading Location: [id number] us Physician No IMG XR PROCEDURES Final Result * eGFR (05/28/2024 9:50 AM MUSIC ORCHESTRATOR) eGFR 78 >=60 mL/min/1. 73 m2 Comment: [...] was last reviewed 2021. Testing performed by: [address] [address] Blood 05/28/2024 9:50 AM MUSIC ORCHESTRATOR 05/28/2024 12:00 PM MUSIC ORCHESTRATOR us Nuha Araujo MD LAB BLOOD ORDERABLE S Final Result [facility] [address] [facility] Department of [place] [address] * Differential, auto (05/28/2024 9:50 AM MUSIC ORCHESTRATOR) Neutrophil abs 2.0 1.5 - 6.5 K/cumm Comment:Testing performed by : [address] [address] Imm gran abs 0.0 0.0 - 0.1 K/cumm EDWIN Comment:Testing performed by : [address] [address] Lymphocyte abs 0.8 0.8 - 3.3 K/cumm EDWIN Comment:Testing performed by : [address] [address] Monocyte abs 0.5 0.2 - 0.8 K/cumm EDWIN Comment:Testing performed by : [address] [address] Eosinophil abs 0.2 0.0 - 0.5 K/cumm EDWIN Comment:Testing performed by : [address] [place]., [address] Basophil abs 0.0 0.0 - 0.1 K/cumm EDWIN Comment:Testing performed by : [address] [address] Neutrophil pct 56.8 % [facility] Comment: Interpretive Data Percent cell count reference ranges are not reported, since discordance with absolute values may lead to misinterpretation of CBC data. Current Interpretive Data was last revised on 2017. Testing performed by: [address] [address] Imm gran pct 0.6 % [facility] Comment: Interpretive Data Percent cell count reference ranges are not reported, since discordance with absolute values may lead to misinterpretation of CBC data. Current Interpretive Data was last revised on 2017. Testing performed by: [address] [address] Lymphocyte pct 22.4 % [facility] Comment: Interpretive Data Percent cell count reference ranges are not reported, since discordance with absolute values may lead to misinterpretation of CBC data. Current Interpretive Data was last revised on 2017. Testing performed by: [address] [address] Monocyte pct 14.6 % [facility] Comment: Interpretive Data Percent cell count reference ranges are not reported, since discordance with absolute values may lead to misinterpretation of CBC data. Current Interpretive Data was last revised on 2017. Testing performed by: [address] [address] Eosinophil pct 4.7 % [facility] Comment: Interpretive Data Percent cell count reference ranges are not reported, since discordance with absolute values may lead to misinterpretation of CBC data. Current Interpretive Data was last revised on 2017. Testing performed by: [address] [address] Basophil pct 0.9 % [facility] Comment: Interpretive Data Percent cell count reference ranges are not reported, since discordance with absolute values may lead to misinterpretation of CBC data. Current Interpretive Data was last revised on 2017. Testing performed by: [address] [address] Blood 05/28/2024 9:50 AM MUSIC ORCHESTRATOR 05/28/2024 12:02 PM MUSIC ORCHESTRATOR Nuha Araujo MD LAB BLOOD ORDERABLE S Final Result Performing Organization Address [facility] de Phone Number [address] [address] * (ABNORMAL) Thyroid Function [place] (05/28/2024 9:50 AM MUSIC ORCHESTRATOR) TSH 0.19(L) 0.30 - 4.20 mcIUnit/mL Comment:Testing performed by : [address] [address] Blood 05/28/2024 9:50 AM MUSIC ORCHESTRATOR 05/28/2024 12:00 PM MUSIC ORCHESTRATOR Nuha Araujo MD LAB BLOOD ORDERABLE S Final Result Performing Organization Address [facility] de Phone Number [address] [address] * (ABNORMAL) CBC with auto differential (05/28/2024 9:50 AM MUSIC ORCHESTRATOR) Pathologist [facility] WBC 3.4(L) 3.8 - 9.9 K/cumm Comment:Testing performed by : [address] [address] Hgb 15.4 13.0 - 17.5 g/dL [facility] RANDALL Comment:Testing performed by : [address] [address] Hct 45.6 38.9 - 50.3 % [facility] RANDALL Comment:Testing performed by : [address] [address] Plt 180 150 - 400 K/cumm EDWIN RANDALL Comment:Testing performed by : [address] [address] MPV 11.4 9.1 - 12.3 fL EDWIN RANDALL Comment:Testing performed by : [address] [address] RBC 5.33 4.30 - 5.80 M/cumm EDWIN Comment:Testing performed by : [address] [address] MCV 85.6 81.3 - 96.4 fL EDWIN Comment:Testing performed by : [address] [address] MCH 28.9 27.1 - 33.3 pg EDWIN Comment:Testing performed by : [address] [address] MCHC 33.8 32.3 - 35.7 g/dL EDWIN Comment:Testing performed by : [address], [address] RDW CV 13.2 11.1 - 14.9 % EDWIN Comment:Testing performed by : [address], [address] RDW SD 40.8 35.7 - 48.1 fL EDWIN Comment:Testing performed by : [address] [address] NRBC abs 0.00 0.00 - 0.01 K/cumm EDWIN Comment:Testing performed by : [address], [address] Blood 05/28/2024 9:50 AM MUSIC ORCHESTRATOR 05/28/2024 12:02 PM MUSIC ORCHESTRATOR us Nuha Araujo MD LAB BLOOD ORDERABLE S Final Result [facility] [address] [facility] Department of [place] [address] * T3, free (05/28/2024 9:50 AM MUSIC ORCHESTRATOR) Free T3 4.4 2.0 - 4.4 pg/mL Blood 05/28/2024 9:50 AM MUSIC ORCHESTRATOR 05/28/2024 4:35 PM MUSIC ORCHESTRATOR Narrative [facility] - 05/28/2024 5:10 PM MUSIC ORCHESTRATOR This test was reflexed from a T4 result. Nuha Araujo MD LAB BLOOD ORDERABLE S Final Result Performing Organization Address [facility] Co de Phone Number EDWIN [address] [address] * T4, free (05/28/2024 9:50 AM MUSIC ORCHESTRATOR) [facility] Free T4 1.12 0.90 - 1.70 ng/dL Comment:Testing performed by : [address] [address] Blood 05/28/2024 9:50 AM MUSIC ORCHESTRATOR 05/28/2024 12:00 PM MUSIC ORCHESTRATOR Narrative [facility] 05/28/2024 2:22 PM MUSIC ORCHESTRATOR This test was reflexed from a TSH result. Nuha Araujo MD LAB BLOOD ORDERABLE S Edited Result - Final Performing Organization Address [place] de Phone Number [address] [address] * Magnesium (05/28/2024 9:50 AM MUSIC ORCHESTRATOR) [facility] Magnesium 2.3 1.4 - 2.5 mg/dL Comment:Testing performed by : [address] [address] Blood 05/28/2024 9:50 AM MUSIC ORCHESTRATOR 05/28/2024 12:00 PM MUSIC ORCHESTRATOR Nuha Araujo MD LAB BLOOD ORDERABLE S Final Result Performing Organization Address [facility] Co de Phone Number [address] [address] * Vitamin B12 (05/28/2024 9:50 AM MUSIC ORCHESTRATOR) [facility] Vitamin B12 269 230 - 1,250 pg/mL Comment:Testing performed by : [address] [place] [address] Blood 05/28/2024 9:50 AM MUSIC ORCHESTRATOR 05/28/2024 12:00 PM MUSIC ORCHESTRATOR us Nuha Araujo MD LAB BLOOD ORDERABLE S Final Result [facility] [address] [facility] Department of [place] [address] * (ABNORMAL) Lipid panel (05/28/2024 9:50 AM MUSIC ORCHESTRATOR) Cholesterol 232(H) 30 - 199 mg/dL Comment: [...] last revised on 2018. Testing performed by: [address] [address] Triglycerides 95 <=149 mg/dL EDWIN Comment: Interpretive [...] last revised on 2018. Testing performed by: [address] [address] HDL 84 >=40 mg/dL EDWIN Comment: Interpretive [...] last revised on 2018. Testing performed by: [address] [address] LDL, calculated 132(H) <=129 mg/dL [facility] RANDALL Comment: Interpretive Data Ages [...] NCEP Expert Panel. Circulation 2004;110:227 3. Bandar Boothe et al. CLARA Cardiol. 2019September 11;5(5):540-548. doi: 10.1001/jamacardio.2020.0013 Current Interpretive Data was last revised on 2024. Testing performed by: [address] [address] Non-HDL Cholesterol 148 mg/dL EDWIN Comment: Interpretive Data Ages < [...] last revised on 2018. Testing performed by: [address] [address] Chol/HDL ratio 3 [facility]WIN Comment:Testing performed by : [address] [address] Blood 05/28/2024 9:50 AM MUSIC ORCHESTRATOR 05/28/2024 12:00 PM MUSIC ORCHESTRATOR us Nuha Araujo MD LAB BLOOD ORDERABLE S Final Result [facility] [address] [facility] Department of [place] [address] * (ABNORMAL) Comprehensive metabolic panel (05/28/2024 9:50 AM MUSIC ORCHESTRATOR) Sodium 140 135 - 145 mmol/L Comment:Testing performed by : [address] [address] Potassium, pl 4.8 3.3 - 4.9 mmol/L EDWIN Comment:Testing performed by : [address] [address] Chloride 102 97 - 110 mmol/L EDWIN Comment:Testing performed by : [address] [address] CO2 28 22 - 32 mmol/L EDWIN Comment:Testing performed by : [address] [address] Anion gap 10 2 - 15 mmol/L EDWIN Comment:Testing performed by : [address] [address] BUN 16 6 - 25 mg/dL EDWIN Comment:Testing performed by : [address] [address] Creatinine 1.02 0.80 - 1.30 mg/dL EDWIN Comment:Testing performed by : [address] [address] Glucose 112 70 - 199 mg/dL EDWIN [...] classification and Diagnosis of Diabetes Diabetes Care 202; 46: S19-S40. Current interpretive data was last revised 2022. Testing performed by: [address] [address] Calcium 10.2 8.5 - 10.3 mg/dL EDWIN Comment:Testing performed by : [address] [address] Bilirubin, total 0.5 0.1 - 1.2 mg/dL EDWIN Comment:Testing performed by : [address] [address] Protein, pl 7.4 6.5 - 8.5 g/dL EDWIN Comment:Testing performed by : [address] [address] Albumin 4.6 3.5 - 5.0 g/dL [facility] Comment:Testing performed by : [address] [address] Alk phos 70 40 - 130 Units/L EDWIN Comment:Testing performed by : [address] [address] ALT <5(L) 7 - 55 Units/L EDWIN Comment:Testing performed by : [address] [address] AST 20 10 - 50 Units/L [facility] Comment:Testing performed by : [address] [address] Blood 05/28/2024 9:50 AM MUSIC ORCHESTRATOR 05/28/2024 12:00 PM MUSIC ORCHESTRATOR us Nuha Araujo MD LAB BLOOD ORDERABLE S Final Result [facility] [address] [facility] Department of [place] [address] * Stool DNA - Cologuard (01/05/2022 11:10 AM CDT) Stool DNA - Cologuard Negative Negative [employer] (CLIA #:[id number]) Comment: NEGATIVE TEST RESULT. A negative Cologuard [...] screened with both Cologuard and colonoscopy. (Sherly Monge et al, N Engl J Med 2014;370(14):9588-6963) The normal value (reference range) for this assay is negative. COLOGUARD RE-SCREENING RECOMMENDATION: Periodic colorectal cancer screening is an important part of preventive healthcare for asymptomatic individuals at average risk for colorectal cancer. Following a negative Cologuard result, the [place] Cancer Society and U.S. Multi-Society Task Force screening guidelines recommend a Cologuard re-screening interval of 3 years. References: [place] [employer] Guideline for Colorectal Cancer Screening: https://www.cancer.org/cancer/kfqtz-sqdybh-gdvwot/tcreqyizj-fkelsxdkb-bqnxuyt/ac s-rec ommendations.html.; Theo BUITRAGO, Judie MORALES, Hoa GreenfieldK, Colorectal Cancer Screening: Recommendations for Physicians and Patients from the U.S. Multi-Society Task Force on Colorectal Cancer Screening , Am J Gastroenterology 2017; 112:5283-5716. TEST DESCRIPTION: Composite algorithmic analysis of stool [...] screened with both Cologuard and colonoscopy. (Sherly Monge et al, N Engl J Med 2014;370(14):8183-0949.) Cologuard may produce a false negative or false positive result (no colorectal cancer or precancerous polyp present at colonoscopy follow up). A negative Cologuard test result does not guarantee the absence of CRC or advanced adenoma (pre-cancer). The current Cologuard screening interval is every 3 years. ([place] [employer] Society and U.S. Multi-Society Task Force). Cologuard performance data in a 10,000 patient pivotal study using colonoscopy as the reference method can be accessed at the following location: www.KnockaTV/results. Additional description of the Cologuard test process, warnings and precautions can be found at www.True PivotogFlowMetricrd.com. Stool 01/05/2022 11:1 0 AM CDT 01/06/2022 4:33 PM CDT us Nuha Araujo MD LAB BODY FLUIDS AND STOOLS ORDERABLES Final Result [employer] (CLIA #:[id number]) [place] [address] * PSA, total and free (08/19/2020 6:32 AM CDT) Free PSA Screen <0.1 ng/mL [employer] [employer] PROSTATE SPECIFIC AG, TOTAL 0.2 0.0 - 4.0 ng/mL [employer] Comment: INTERPRETIVE INFORMATION: Prostate Specific Antigen The [...] PROSTATE SPECIFIC AG, % FREE <50 % [employer] Comment: INTERPRETIVE INFORMATION: Prostate Specific Antigen, Free Percentage [employer] uses the Kathy Free PSA electrochemiluminescent immunoassay [...] prostate cancer in individual patients. Performed By: [employer] [address] [place] [address] Consulting Technical Manager: Eri Perez MD Blood specimen (specimen) 08/19/2020 6:32 AM CDT 08/19/2020 6:42 AM CDT Narrative Resulting Agency Comment CLI us Nuha Araujo MD LAB BLOOD ORDERABLE S Final Result [facility] [address] [place] [address], [facility] [phone] * Hepatitis C antibody (03/14/2019 9:16 AM CDT) Hep C Ab NONREACT NONREACTIVE [facility] Comment: Siemens CentaurXP using SANAM (chemiluminescent [...] LAB MICROBIOLOGY - GENERAL ORDERABLES Final Result [facility] [address] [phone] from Last 3 Months or Most Recently Relevant to Health Maintenance Insurance MEDICARE [facility] MEDICARE [facility] MEDICARE [facility] Care Teams Roulette Dealer Relationship Specialty Start Date End Date Nuha Araujo MD [address] [place] [address] PCP - General Family Medicine 09/11/18
--- OUTSIDE RECORDS SUMMARY | 2024-06-28 10:34 | XMS_ITS | Referral Summary ---
Author Organization [facility] Address [address] [place] [address] Care Team Providers Care Endocrinology Specialist Name Role Phone Nuha Araujo MD Primary Care Provider [phone] Source Comments [facility],non-owned Affiliates and Associated Physician Practices is amultiple site organization consisting of ambulatory clinics and hospital sitesin [place], [place], [place] and [place]. This disclosure is being madepursuant to the Care Everywhere program and may not contain all information available regarding this patient. Last updated 18.[facility] [place] [facility] [place] [facility] Allergies No known active allergies Medications * Be aware that medications may not be up to date on this document. Alwaysverify current medications with the patient. Medication Sig Dispensed Refills Start Date End Date Status Vitamin D3, cholecalciferol, 50 MCG (1999 UT) tablet Active erenumab-aooe (AIMOVIG) 70 MG/ML auto injector pen Inject 70 mg subcutaneously 03/14/2019 Active meloxicam (MOBIC) 15 MG tablet Take 15 mg by mouth once daily 12/01/2019 Active omeprazole (PRILOSEC) 40 MG capsule TK ONE C PO QD 02/24/2019 Active rizatriptan (MAXALT) 10 MG tablet TAKE 1 TABLET BY MOUTH 1 TIME NEEDED 12/11/2019 Active XTANDI 40 MG capsule 04/17/2020 Active Active Problems Problem Noted Date Diagnosed Date [...] Comments Blood Pressure 128/62 05/18/2020 9:51 AM CHILD AND ADOLESCENT PSYCHOLOGIST Pulse 86 05/18/2020 9:51 AM CHILD AND ADOLESCENT PSYCHOLOGIST Temperature - - Respiratory Rate - - Oxygen Saturation 98% 05/18/2020 9:51 AM CHILD AND ADOLESCENT PSYCHOLOGIST Inhaled Oxygen Concentration - - Weight 80.7 kg (178 lb) 05/12/2020 9:40 AM CHILD AND ADOLESCENT PSYCHOLOGIST Height - - Body Mass Index - - Plan of Treatment Not on file Care Teams Endocrinology Specialist Relationship Specialty Start Date End Date Nuha Araujo MD PCP - General Family Medicine 05/17/20
--- OUTSIDE RECORDS SUMMARY | 2024-06-28 10:34 | XMS_ITS | Clinical Summary ---
Author Organization [facility] Address [address] [place] [address] Care Team Providers Care Coat Fitter Name Role Phone Nuha Araujo MD Primary Care Provider [phone] Source Comments [facility],non-owned Affiliates and Associated Physician Practices is amultiple site organization consisting of ambulatory clinics and hospital sitesin [place], [place], [place] and [place]. This disclosure is being madepursuant to the Care Everywhere program and may not contain all information available regarding this patient. Last updated 18.[facility] Allergies No known active allergies Medications * [...] of trunk 02/19/2020 Inflamed seborrheic keratosis 02/19/2020 Family History Medical History Relation Name Comments None Known Brother None Known Father None Known Maternal Aunt None Known Maternal Grandfather None Known Maternal Grandmother None Known Maternal Uncle None Known Mother None Known Other None Known Paternal Aunt None Known Paternal Grandfather None Known Paternal Grandmother None Known Paternal Uncle None Known Sister Asthma Neg Hx CVA Neg Hx Cancer - Breast Neg Hx Cancer - Other Neg Hx Cancer - Skin, Melanoma Neg Hx Cancer - Skin, Non Melanoma Neg Hx Eczema Neg Hx Hemophilia Neg Hx Psoriasis Neg Hx Relation Name Status Comments Brother Father Maternal Aunt Maternal Grandfather Maternal Grandmother Maternal Uncle Mother Other Paternal Aunt Paternal Grandfather Paternal Grandmother Paternal Uncle Sister Social History Tobacco Use Types Packs/Day Years [...] Comments Blood Pressure 128/62 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 Pulse 86 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 Temperature - - Respiratory Rate - - Oxygen Saturation 98% 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 Inhaled Oxygen Concentration - - Weight 80.7 kg (178 lb) 05/12/2020 9:40 AM WORD PROCESSING OPERATOR Height - - Body Mass Index - - Plan of Treatment Health Maintenance Due Date Last Done Comments COLOGUARD (AGES 45-75) - COLON CA SCREENING 1950 COLON MONITORING 1950 COLONOSCOPY - COLON CA SCREENING 1950 CT COLONOGRAPHY - COLON CA SCREENING 1950 Colorectal Cancer Screening 1950 FIT - COLON CA SCREENING 1950 FLEX SIG - COLON CA SCREENING 1950 LIPID TESTING 1950 HEPATITIS C SCREENING 09/09/1968 DTAP/TDAP/TD VACCINES (1 - Tdap) 1969 PNEUMOCOCCAL VACCINE 50+ (1 of 1 - PCV) 2000 ZOSTER VACCINE (1 of 2) 2000 COVID-19 VACCINE (3 - 2023- season) 2024 07/21/2020, 06/23/2020 INFLUENZA VACCINE (#1) 2024 0, 02/28/2019, 03/05/2018, Additional history exists DEPRESSION SCREENING 05/14/2024 Respiratory Syncytial Virus (RSV) Vaccine Pt: or over 60 yrs (1 - 1-dose 75+ series) 2025 HEPATITIS B VACCINE Aged Out No longe r eligible based on patient's age to complete this topic HIB VACCINE Aged Out No longer eligi ble based on patient's age to complete this topic HPV VACCINE Aged Out No longer eligi ble based on patient's age to complete this topic MENINGOCOCCAL (Group B) VACCINE Aged Out No longer eligible based on patient's age to complete this topic MENINGOCOCCAL VACCINE Aged Out No ney sudarshan eligible based on patient's age to complete this topic Care Teams Coat Fitter Relationship Specialty Start Date End Date Nuha Araujo MD PCP - General Family Medicine 05/17/20
--- OUTSIDE RECORDS SUMMARY | 2024-06-28 10:34 | XMS_ITS | Encounter Summary ---
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 Historical Provider Final Res ult documented in this encounter Visit Diagnoses Not on filedocumented in this encounter Care Teams Washcoat Wiper Relationship Specialty Start Date End Date Nuha Araujo MD [address] [place] [address] PCP - General Family Medicine 09/11/18 documented as of this encounter
[2024-06-28 11:04] VITALS: BP 158/98; PULSE 76; RESP 18; TEMP 36.3; O2SAT 100
--- NOTE | 2024-06-28 11:35 | ED_ITS ---
HPI - Fall General Chief Complaint: Wound/Laceration Stated Complaint: fall/ LT Rib Pain Time Seen by Provider: 06/28/24 10:35 Source: patient Mode of arrival: ambulatory Limitations: no limitations History of Present Illness HPI Narrative: Patient is a 73-year-old male who presents with left lateral rib pain after tripping on twice last night and following. Patient reports pain is a 9/10 with movement and coughing. Patient has taken aspirin. Denies any shortness of breath. Did not hit head on fall Related Data Home Medications ?Medication ?Instructions ?Recorded ?Confirmed ?Last Taken ?Type atorvastatin 20 mg tablet 20 mg DAILY 04/27/22 04/27/22 Unknown History enzalutamide 40 mg capsule (Xtandi) 40 mg PO DAILY 04/27/22 04/27/22 Unknown History omeprazole 40 mg capsule,delayed 40 mg DAILY 04/27/22 04/27/22 Unknown History release rizatriptan 10 mg tablet 10 mg PRN PRN Headache 04/27/22 04/27/22 Unknown History famotidine 20 mg tablet mg 06/28/24 Unknown History Allergies Allergy/AdvReac Type Severity Reaction Status Date / Time No Known Allergies Allergy Verified 06/28/24 12:34 Review of Systems Review of Systems: All systems reviewed & are unremarkable except as noted in HPI and below Constitutional: Constitutional: Denies body ache(s), Denies chills, Denies fatigue, Denies fever(s), Denies headache(s), Denies malaise and Denies weakness Eyes: Eyes: Denies blurry vision, Denies irritation and Denies loss of vision ENT: Denies otalgia, Denies headache(s), Denies nasal discharge, Denies sinus pain and Denies sore throat Cardiovascular: Cardiovascular: Denies chest pain, Denies irregular heart rhythm and Denies dyspnea Respiratory: Respiratory: Reports pain with cough, Denies dyspnea and Reports other (rib pain) Gastrointestinal: Gastrointestinal: Denies abdominal pain, Denies melena, Denies hematochezia, Denies diarrhea, Denies nausea and Denies vomiting Musculoskeletal: Musculoskeletal: Denies back pain, Denies myalgias and Denies arthralgias Integumentary/Breasts: Skin/Breast: Denies pruritus and Denies rash Neurologic: Denies headache(s), Denies loss of vision and Denies weakness Psychiatric: Psychiatric: Reports no additional psychiatric complaints Endocrine: Endocrine: Denies fatigue PMFSH Past Medical History Medical History H/O gastroesophageal reflux (GERD) High cholesterol Comments At time of signature, agree with nursing past medical, surgical, social and family history. There is no relevant family history pertinent to the presenting complaint. Exam Const: General: cooperative, healthy appearing, comfortable, no acute distress and well nourished Nutritional Appearance: well nourished Orientation/consciousness: patient oriented x3 Limitations: no limitations HENMT: Head: normal to inspection, normocephalic and atraumatic Ears: hearing grossly normal bilaterally and external ears normal Face/Nose/Sinus: Normal external nose present, normal facial exam and face symmetric Face and sinus: normal facial exam and face symmetric Mouth: Yes lip normal Eyes: General: appearance normal, both eyes and all related structures Alignment and Position: alignment normal and position normal Periorbital: periorbital findings normal Eyelids: eyelids normal Pupils: Equal, round and reactive pupils present EOM: EOMs intact bilaterally Neck: Neck: normal visual inspection, full ROM and supple Chest: Chest palpation & inspection: normal inspection of the chest and tenderness rib (no ecchymosis ) left anterior-axillary line involving the 8th rib and involving the 9th rib Resp: Effort & Inspection: normal respiratory effort and able to speak in complete sentences Auscultation: clear to auscultation bilaterally Cardio: Rate: regular rate Rhythm: regular rhythm Heart sounds: S1 normal heart sound present and S2 normal heart sound present GI: Inspection: normal to inspection Skin: General skin exam: normal color and no rashes or lesions noted Neuro: General: patient oriented x3 and moves all extremities Cranial nerves: Yes Equal, round and reactive pupils present Speech: normal speech Gait exam (Neuro): Normal gait present Extrem: General: normal to inspection, full ROM and no edema Psych: Appearance: grossly normal and well kempt Mental Status: mental status grossly normal Speech and movement: Normal speech and movement present Affect: normal affect Attitude: cooperative Thought process: Normal thought process present Course Course Emergency Course: Patient is aware of diagnosis, understands and agrees to treatment plan. Anticipatory guidance given. Patient agrees to follow-up as directed and is aware of reasons to seek care at the emergency department. Portions of this record may have been created with voice recognition software Level of Care: Express Care Visit Vital Signs Vital signs: Vital Signs Temperature 36.3 C L 06/28/24 11:04 Pulse Rate 76 06/28/24 11:04 Respiratory Rate 18 06/28/24 11:04 Blood Pressure 158/98 H 06/28/24 11:04 Pulse Oximetry 100 06/28/24 11:04 Oxygen Delivery Room Air 06/28/24 11:04 Temperature 36.3 C L 06/28/24 11:04 Pulse Rate 76 06/28/24 11:04 Respiratory Rate 18 06/28/24 11:04 Blood Pressure 158/98 H 06/28/24 11:04 Pulse Oximetry 100 06/28/24 11:04 Oxygen Delivery Room Air 06/28/24 11:04 Reviewed MDM - Fall MDM Narrative Medical decision making narrative: Rim fractures found on x-ray. Discussed following up with PCP it is important to monitor healing. Will send patient home with pain medication and incentive spirometer. Discussed bracing with any coughing or sneezing. Pt well hydrated appearing, in no respiratory distress, hemodynamically stable. Recommend supportive care. The patient is stable at time of discharge the clinical impression was discussed and the patient was given the opportunity to ask questions, which were addressed as completely as possible given the information available at present. Anticipatory guidance and return to care precautions were discussed and the importance of primary care follow-up was stressed and encouraged. The patient voiced understanding of the plan, indications to return, and the need for follow-up. Exam findings show no acute concerns or changes Patient is appropriate for outpatient treatment and follow-up. Differential Diagnosis Differential diagnosis: Likely other (Rib fracture, rib contusion) Medical Records Attestation: I reviewed the patient's medical records. Imaging Data Radiologist's impression: EXAMINATION: [id number] DATE: 06/28/2024 11:51 INDICATION: Lateral lower left rib pain post fall TECHNIQUE: A frontal inspiratory view of the chest and 3 views of the left ribs were obtained. COMPARISON: None FINDINGS: Mildly displaced fracture of the anterolateral left eighth and ninth ribs. No pneumothorax. No focal infiltrates, pleural effusion or pulmonary edema. Cardiomediastinal silhouette is normal. IMPRESSION: 1. Mildly displaced fractures of the anterolateral left eighth and ninth ribs. 2. No pneumothorax or other acute cardiopulmonary disease. Discharge Plan Discharge Clinical Impression: Closed rib fracture Qualifiers: Encounter type: initial encounter Rib fracture type: multiple ribs Laterality: left Qualified Code(s): S22.42XA - Multiple fractures of ribs, left side, initial encounter for closed fracture Patient Disposition: Home, Self-Care Condition: Stable Instructions: How to Use an Incentive Spirometer (ED), Rib Fracture (ED) Additional Instructions: Pain may get worse for a week and last for up to eight weeks.The most important thing is to get your pain under control. Breathing exercises will not be effective unless your pain is controlled. Take your pain relieving medications as prescribed by your doctor, and continue to speak with your primary care doctor about maintaining your pain relief. Strenuous activities should be avoided for the first 3-4 weeks, after which you can commence physical activity as pain allows. If the pain is increasing you may be doing too much. Cough and deep breath at least 10 times per hour. Try holding a cushion firmly against the painful site when you acosta and cough to decrease the pain. Sit out of bed and keep moving as much as you feel comfortable. This will decrease the risk of developing lung complications. Your blood pressure was elevated above 120/80 today at Urgent Care. This puts you above the threshold for follow up visit with a primary care provider. High blood pressure does not usually cause any symptoms, however it may lead to kidney failure, stroke, heart disease just to name a few if untreated . Many people are anxious when seeing a provider or nurse. As a result, you are not di agnosed with hypertension at this time unless your blood pressure is persistently high at two office visits at least one week apart. Some things that can help lower blood pressure are lifestyle modifications, such as light exercise, decreased salt in diet, and weight loss. It is important to follow up with a PCP about this within 1 week. Patient Language: Slovenian Prescriptions: New hydrocodone-acetaminophen 5-325 mg tablet 1 tablet PO Q6H PRN (Reason: pain) Qty: 12 0RF No Action atorvastatin 20 mg tablet 20 mg DAILY rizatriptan 10 mg tablet 10 mg PRN PRN (Reason: Headache) omeprazole 40 mg capsule,delayed release(DR/EC) 40 mg DAILY Xtandi 40 mg capsule 40 mg PO DAILY famotidine 20 mg tablet Follow-up/Referrals: Van,MD Nuha [Primary Care Provider] - 3 Days (8&9th left rib fracture) Time of Disposition: 12:49
== END 2024-06-28 12:55 | disposition home or self-care (01) ==
PROVIDERS: Emergency Provider Nurse Practitioner Family; PCP Family Medicine
DX: S22.42XA Multiple fractures of ribs, left side, initial encounter for closed fracture (principal); Z79.899 Other long term (current) drug therapy; W01.0XXA Fall on same level from slipping, tripping and stumbling without subsequent striking against object, initial encounter
CPT/HCPCS: 71101; 99213; G0463